=== PATIENT | male | born 1960 | race Caucasian/White ===

== ENCOUNTER 2022-06-29 21:41 | Emergency (ER) | payer BC ==
[2022-06-29 21:47] VITALS: BP 161/93; PULSE 85; RESP 16; TEMP 98.3
--- NOTE | 2022-06-29 22:07 | ED ---
General Adult HPI - General Chief complaint: Extremity Injury, Upper Stated complaint: left arm fracture Time Seen by Provider: 06/29/22 21:48 Source: patient, RN notes reviewed Mode of arrival: ambulatory Limitations: no limitations - History of Present Illness Initial comments: This is a pleasant 62-year-old male who presents to emergency department c omplaining of pain to his left shoulder and left trapezius area which started just before Thanksgiving. Patient states any movement exacerbates the pain. Patient states that his arm is not supported he is getting a lot of pain. Denies any distal paresthesias. States he feels well otherwise. Patient denying any trauma. Pain radiates from the left trapezius into the left upper arm area. No break in skin integrity. No rash or lesion. Patient states he has no other health issues. Patient ended up going to a chiropractor and had x- rays of his neck. Patient apparently went back for follow-up visit and saw a physician medical receptionist assistant at that facility who ordered an MRI. Patient had outpatient MRI was told to come here due to a fracture. No headache, no fever or chills, no changes in vision or hearing, no sore throat or difficulty with speech, no neck pain, no chest pain or shortness of breath, no abdominal pain, no nausea or vomiting, no changes in urination or bowel movements, no numbness or tingling, no extremity pain, no skin rashes or lesions. Past medical, surgical, social, and family history reviewed. - Related Data Allergies Allergy/AdvReac Type Severity Reaction Status Date / Time Penicillins Allergy Unknown Verified 06/29/22 21:43 Review of Systems ROS Statement: Those systems with pertinent positive or pertinent negative responses have been documented in the HPI. ROS Other: All systems not noted in ROS Statement are negative. Past Medical History Past Medical History: No Reported History History of Any Multi-Drug Resistant Organisms: None Reported Past Surgical History: Appendectomy, Orthopedic Surgery Past Psychological History: No Psychological Hx Reported Smoking Status: Never smoker Past Alcohol Use History: None Reported Past Drug Use History: None Reported General Exam - General Exam Comments Initial Comments: Blood pressure elevated, patient looks well otherwise. Remainder of vital signs are normal. Limitations: no limitations General appearance: alert, in no apparent distress Head exam: Present: atraumatic, normocephalic, normal inspection Eye exam: Present: normal appearance, PERRL, EOMI. Absent: scleral icterus, conjunctival injection, periorbital swelling ENT exam: Present: normal exam, mucous membranes moist Neck exam: Present: normal inspection. Absent: tenderness, meningismus, lymphadenopathy Respiratory exam: Present: normal lung sounds bilaterally. Absent: respiratory distress, wheezes, rales, rhonchi, stridor, chest wall tenderness, accessory muscle use, decreased breath sounds, prolonged expiratory Cardiovascular Exam: Present: regular rate, normal rhythm, normal heart sounds. Absent: systolic murmur, diastolic murmur, rubs, gallop, clicks GI/Abdominal exam: Present: soft, normal bowel sounds. Absent: distended, tend erness, guarding, rebound, rigid Extremities exam: Present: tenderness (Tender to the trapezius and proximal humerus area.), normal capillary refill, other (No other definitive abnormality with regards to musculoskeletal system.). Absent: full ROM (Range of motion limited with regards to the shoulder. Patient does have some atrophy of the supraspinatus and trapezius area. Possibly the deltoid as well. No erythema. No break in skin integrity), pedal edema, joint swelling, calf tenderness Back exam: Present: normal inspection Neurological exam: Present: alert, oriented X3, CN II-XII intact Psychiatric exam: Present: normal affect, normal mood Skin exam: Present: warm, dry, intact, normal color. Absent: rash Course Vital Signs 06/29/22 21:44 Temperature 98.3 F Pulse Rate 85 Respiratory 16 Rate Blood Pressure 161/93 O2 Sat by Pulse 98 Oximetry Medical Decision Making - Medical Decision Making Was pt. sent in by a medical professional or institution? @ Patient was sent by [facility] [employer] after having an outpatient MRI of his left shoulder which was abnormal. Apparently the MRI was ordered by the p cr medical receptionist assistant who works at [employer] with the chiropractor, Dr. Marilyn Shah. Did you speak to anyone other than the patient for history? @ [EMS, parent, family, police, friend?] Did you review nursing and triage notes? @ Yes Were old charts reviewed? @ Reviewed MRI report from outside diagnostic center.Impression large bone lesion within the proximal humeral diaphysis suggestive of bony metastases with 2 additional smaller lesions present within the superior glenoid coracoid process there is loss of the normal cortex involving the posterior medial aspect of the humeral lesion with local extension of the bone lesion into the soft tissues as well as a corresponding pathologic fracture through the proximal humeral diaphysis at this level with medial angulation of the distal fracture fragment. No additional evidence of fracture. Edema within the deltoid muscle may represent reactive bone marrow edema related to humeral fracture. Deltoid muscle strength cannot be excluded. Superior glenoid labral tear. No additional glenoid labral abnormalities. Mild supraspinatus and infraspinatus tendinosis, no evidence of rotator cuff tear, mild subacromial and subdeltoid bursitis. Differential Diagnosis? @ [chest pain, altered mental status abdominal pain women, abdominal pain men, vaginal bleeding, weakness, fever, dyspnea, syncope, headache, dizziness, GI bleed, back pain, seizure] EKG interpreted by me (3pts min.)? @ [none] X-rays interpreted by me (1pt min.)? @ Plain film x-rays of the cervical spine, chest, lumbar spine, left shoulder, humerus interpreted by me reveal evidence of a proximal humerus fracture and bone lesion. Radiologist interpretation is delayed CT interpreted by me (1pt min.)? @ [none] U/S interpreted by me (1pt. min.)? @ [none] What testing was considered but not performed? (CT, X-rays, U/S, labs)? Why? @ [CT, X-rays, U/S, labs? Why?] What meds were considered but not given? Why? @ [none] Did you discuss the management of the patient with other professionals? @ Case discussed in detail with the on-call orthopedic physician, Dr. Diamond who suggested the patient would need to see an orthopedic oncologist as well as an oncologist. She suggested the patient go to the [facility]. Did you reconcile home meds? @ [none] Was smoking cessation discussed for >3mins.? @ [none] Was critical care preformed (if so, how long)? @ [none] Were there social determinants of health that impacted care today? How? (Homelessness, low income, unemployed, alcoholism, drug addiction, transportation, low edu. Level, literacy, decrease access to med. care, care home, rehab)? @ Patient has no primary care physician. I did discuss this in detail with the patient. Patient states he can obtain a primary care doctor. In fact he states he's going to go directly to the [facility]. Was there de-escalation of care discussed even if they declined? (Discuss DNR or withdrawal of care, Hospice)? @ [Discuss DNR or withdrawal of care, Hospice?] What co-morbidities impacted this encounter? (DM, HTN, Smoking, COPD, CAD, Canc er, CVA, Hep., AIDS, mental health diagnosis, sleep apnea, morbid obesity)? @ [DM, HTN, Smoking, COPD, CAD, Cancer, CVA, Hep., AIDS, mental health diagnosis, sleep apnea, morbid obesity?] Was patient admitted / discharged? @ Patient was discharged with a sling, conservative pain management, stable condition, patient will follow up at the [facility] as discussed. Patient will need to see orthopedic oncology as well as an oncologist regarding the findings. Patient's laboratory investigations were essentially normal. Radiologist report was delayed. I did review the patient's outpatient MRI. Patient was told to return to the ER for any signs or symptoms worsen. Told to return immediately if any other problems arise. All questions answered. Treatment plan discussed. Patient in agreement Every effort has been made to ensure accuracy of this dictation. However, due to the limitations of electronic medical records and dictation devices, errors in charting still occur. Undiagnosed new problem with uncertain prognosis? @ This is a stable lesion of undetermined etiology. Drug Therapy requiring intensive monitoring for toxicity (Heparin, Nitro, Insul in, Cardizem)? @ [none] Were any procedures done? @ [none] Diagnosis/symptom? @ Proximal humerus fracture, closed, left, associated bone lesion Acute, or Chronic, or Acute on Chronic? @ Acute Uncomplicated (without systemic symptoms) or Complicated (systemic symptoms)? @ Complicated Side effects of treatment? @ [none] Exacerbation, Progression, or Severe Exacerbation] @ [no] Poses a threat to life or bodily function? @ [no] - Lab Data Result diagrams: 06/29/22 22:03 06/29/22 22:03 Lab Results 06/29/22 06/29/22 06/29/22 Range/Units 22:03 22:03 22:03 WBC 7.7 (3.8-10.6) k/uL RBC 4.62 (4.30-5.90) m/uL Hgb 13.7 (13.0-17.5) gm/dL Hct 38.6 L (39.0-53.0) % MCV 83.4 (80.0-100.0) fL MCH 29.6 (25.0-35.0) pg MCHC 35.4 (31.0-37.0) g/dL RDW 13.9 (11.5-15.5) % Plt Count 217 (150-450) k/uL MPV 8.4 Neutrophils % 59 % Lymphocytes % 32 % Monocytes % 5 % Eosinophils % 2 % Basophils % 0 % Neutrophils # 4.5 (1.3-7.7) k/uL Lymphocytes # 2.4 (1.0-4.8) k/uL Monocytes # 0.4 (0-1.0) k/uL Eosinophils # 0.1 (0-0.7) k/uL Basophils # 0.0 (0-0.2) k/uL PT 10.2 (9.0-12.0) sec INR 1.0 (<1.2) APTT 23.1 (22.0-30.0) sec Sodium 139 (137-145) mmol/L Potassium 4.3 (3.5-5.1) mmol/L Chloride 105 (98-107) mmol/L Carbon Dioxide 26 (22-30) mmol/L Anion Gap 8 mmol/L BUN 13 (9-20) mg/dL Creatinine 0.68 (0.66-1.25) mg/dL Est GFR (CKD-EPI)AfAm >90 (>60 ml/min/1.73 sqM) Est GFR (CKD-EPI)NonAf >90 (>60 ml/min/1.73 sqM) Glucose 97 (74-99) mg/dL Calcium 9.3 (8.4-10.2) mg/dL Total Bilirubin 0.7 (0.2-1.3) mg/dL AST 24 (17-59) U/L ALT 25 (4-49) U/L Alkaline Phosphatase 96 (38-126) U/L Total Protein 8.9 H (6.3-8.2) g/dL Albumin 4.2 (3.5-5.0) g/dL Disposition Clinical Impression: Closed fracture of proximal end of left humerus, Humerus lesion, left Narrative: Possible metastatic lesion to the proximal left humerus. Disposition: HOME SELF-CARE Condition: Stable Instructions (If sedation given, give patient instructions): Arm Fracture in Adults (ED), How to Use a Sling (ED), Osteolysis (ED) Additional Instructions: Follow-up with the [facility] as discussed. You need to see an orthopedic oncologist as well as an oncologist. You should also obtain a primary care physician. You can also follow-up with the orthopedic physician here in town for further guidance. Follow-up with your regular physician as directed. Return to the ER immediately if any symptoms worsen, new symptoms arise, or any other problems develop. Is patient prescribed a controlled substance at d/c from ED?: No Referrals: Luh Diamond DO [Doctor of Osteopathic Medicine] - 1-2 days Time of Disposition: 23:19
[2022-06-29 22:32] LABS: Basophils % (A) 0 %; Eosinophils # (A) 0.1 k/uL (0-0.7); Eosinophils % (A) 2 %; HCT 38.6 % (39.0-53.0); HGB 13.7 gm/dL (13.0-17.5); Lymphocytes # (A) 2.4 k/uL (1.0-4.8); Lymphocytes % (A) 32 %; MCH 29.6 pg (25.0-35.0); MCHC 35.4 g/dL (31.0-37.0); MCV 83.4 fL (80.0-100.0); Mean Platelet Volume 8.4; Monocytes # (A) 0.4 k/uL (0-1.0); Monocytes % (A) 5 %; Neutrophils # (A) 4.5 k/uL (1.3-7.7); Neutrophils % (A) 59 %; Platelet Count 217 k/uL (150-450); RBC 4.62 m/uL (4.30-5.90); RDW 13.9 % (11.5-15.5); WBC 7.7 k/uL (3.8-10.6)
[2022-06-29 22:47] LABS: ALT 25 U/L (4-49); AST 24 U/L (17-59); African American GFR (CKD) >90 (>60 ml/min/1.73 sqM); Albumin 4.2 g/dL (3.5-5.0); Alkaline Phosphatase 96 U/L (38-126); Anion Gap 8 mmol/L; Blood Urea Nitrogen 13 mg/dL (9-20); Calcium 9.3 mg/dL (8.4-10.2); Carbon Dioxide 26 mmol/L (22-30); Chloride 105 mmol/L (98-107); Glucose 97 mg/dL (74-99); Non-African American GFR(CKD) >90 (>60 ml/min/1.73 sqM); Potassium 4.3 mmol/L (3.5-5.1); Sodium 139 mmol/L (137-145); Total Bilirubin 0.7 mg/dL (0.2-1.3); Total Protein 8.9 g/dL (6.3-8.2)
--- NOTE | 2022-06-29 22:50 | XR ---
EXAMINATION TYPE: XR chest 2V DATE OF EXAM: 06/29/2022 COMPARISON: NONE HISTORY: Shoulder fracture TECHNIQUE: FINDINGS: Heart and mediastinum are normal. Lungs are clear. Diaphragm is normal. Bony thorax is inta ct. IMPRESSION: No cardiopulmonary disease.
[2022-06-29 22:51] LABS: Partial Thromboplastin Time 23.1 sec (22.0-30.0); Prothrombin Time 10.2 sec (9.0-12.0)
--- NOTE | 2022-06-29 22:51 | XR ---
EXAMINATION TYPE: XR cervical spine limited DATE OF EXAM: 06/29/2022 COMPARISON: NONE HISTORY: Shoulder pain Neck pain TECHNIQUE: 4 views FINDINGS: Cervical vertebra have normal alignment. Posterior elements are intact. Compression fractur e. There is no significant disc space narrowing. Prevertebral soft tissues are intact. Atlantoaxial f acet joint is not displaced. IMPRESSION: Negative cervical spine exam. No fracture.
--- NOTE | 2022-06-29 23:03 | XR ---
EXAMINATION TYPE: XR lumbar spine 2 or 3V DATE OF EXAM: 06/29/2022 COMPARISON: NONE HISTORY: Back pain TECHNIQUE: 3 views FINDINGS: The lumbar vertebrae are normal alignment. Posterior element are intact. No compression fra cture. Sacroiliac joints are intact. IMPRESSION: Negative lumbar spine exam. No fracture.
--- NOTE | 2022-06-29 23:05 | XR ---
EXAMINATION TYPE: XR humerus LT DATE OF EXAM: 06/29/2022 COMPARISON: NONE HISTORY: Pain TECHNIQUE: 3 views FINDINGS: There is transverse fracture proximal shaft of the humerus. No significant displacement. Th ere is osteolytic area measuring 4 cm at the fracture site. There is extensive cortical destruction. The elbow joint is intact. IMPRESSION: Pathologic fracture with large osteolytic lesion in the proximal humerus. This could be m yeloma or metastatic disease.
--- NOTE | 2022-06-29 23:07 | XR ---
EXAMINATION TYPE: XR shoulder complete LT DATE OF EXAM: 06/29/2022 COMPARISON: NONE HISTORY: Pain TECHNIQUE: 3 view FINDINGS: There is a 4 cm osteolytic lesion in the proximal shaft of the humerus with transverse frac ture. The glenohumeral joint is intact. Scapula is intact. AC joint is intact. IMPRESSION: Pathologic fracture of the proximal shaft of the left humerus.
== END 2022-06-29 23:55 | disposition home or self-care (01) ==
LOC: EC 21:41
DX: S42.202A Unspecified fracture of upper end of left humerus, initial encounter for closed fracture (principal); Z88.0 Allergy status to penicillin; X50.9XXA Other and unspecified overexertion or strenuous movements or postures, initial encounter
CPT/HCPCS: 36415; 71046; 72040; 72100; 80053; 85025; 85610; 85730; 99283

== ENCOUNTER 2023-07-11 09:34 | Day surgery (SDC) | payer BC ==
[2023-07-05 11:09] VITALS: BMI 36.3
[~2023-07-11 09:34] MED LIST: LACTATED RINGERS 1,000 ML IV SCH
[2023-07-11] MEDS ORDERED: LIDOCAINE 1% (10MG/ML) FOR IV START INTRADERMA ONE (10:24)
[2023-07-11 10:39] VITALS: TEMP 97
[2023-07-11] MEDS ORDERED: PROPOFOL 10 MG/ML 20 ML VIAL IV ONE (10:41)
--- NOTE | 2023-07-11 10:49 | P.GSHP ---
History of Present Illness H&P Date: 07/11/23 Chief Complaint: Screening colonoscopy This a 63-year-old male who is undergoing treatment of multiple myeloma. Patient presents today for screening colonoscopy. Past Medical History Past Medical History: Cancer Additional Past Medical History / Comment(s): multiple myeloma, dental disease History of Any Multi-Drug Resistant Organisms: None Reported Past Surgical History: Appendectomy, Orthopedic Surgery Additional Past Surgical History / Comment(s): bilateral knee surgery torn meniscus, fractured humerus left, wears brace Past Anesthesia/Blood Transfusion Reactions: No Reported Reaction Additional Past Anesthesia/Blood Transfusion Reaction / Comment(s): no blood transfusion Smoking Status: Never smoker - Past Family History Mother Family Medical History: Cancer Additional Family Medical History / Comment(s): cervical Father Additional Family Medical History / Comment(s): heart failure Brother(s) Additional Family Medical History / Comment(s): cardiac Medications and Allergies Home Medications Medication Instructions Recorded Confirmed Type Acyclovir [Zovirax] 400 mg PO BID 07/05/23 07/11/23 History Ascorbic Acid [Vitamin C] 1,000 mg PO BID 07/05/23 07/11/23 History Aspirin 81 mg PO DAILY 07/05/23 07/11/23 History Bortezomib 2 mg IJ WEEKLY 07/05/23 07/11/23 History Calcium Carbonate/Vitamin D3 1 each PO BID 07/05/23 07/11/23 History [Calcium 500 mg-Vit D3 5 mcg (200 Unit)] Cyanocobalamin (Vitamin B-12) 500 mcg PO DAILY 07/05/23 07/11/23 History [Vitamin B-12] Daratumumab [Darzalex] 1,800 mg IV Q30D 07/05/23 07/11/23 History Docusate [Colace] 50 mg PO Q4-6H PRN 07/05/23 07/11/23 History Lenalidomide [Revlimid] 25 mg PO DAILY 07/05/23 07/11/23 History Magnesium 400 mg PO DAILY 07/05/23 07/11/23 History Multivitamin [Multivitamins Adult 1 each PO DAILY 07/05/23 07/11/23 History Gummies] Omeprazole [PriLOSEC] 20 mg PO DAILY 07/05/23 07/11/23 History Ondansetron [Zofran] 4 mg PO Q6HR PRN 07/05/23 07/11/23 History dexAMETHasone [Decadron] 40 mg PO WEEKLY 07/05/23 07/11/23 History Allergies Allergy/AdvReac Type Severity Reaction Status Date / Time Penicillins Allergy Unknown Verified 07/11/23 10:15 Surgical - Exam Vital Signs Temp Pulse Resp BP Pulse Ox 97 F L 89 18 131/63 95 07/11/23 10:22 07/11/23 10:22 07/11/23 10:22 07/11/23 10:22 07/11/23 10:22 - General well developed, well nourished, no distress - Eyes PERRL - ENT normal pinna, normal nares - Neck no masses - Respiratory normal expansion - Cardiovascular Rhythm: regular - Abdomen Abdomen: soft, non tender Assessment and Plan Assessment: We'll perform screening colonoscopy.
--- NOTE | 2023-07-11 11:06 | P.OP ---
Date of Procedure: 07/11/23 Preoperative Diagnosis: Colon lesion Postoperative Diagnosis: Colon mass at 38 cm biopsy pending Procedure(s) Performed: colonoscopy Anesthesia: MAC Surgeon: Shaun Gardner Pathology: other (colon biopsy) Condition: stable Disposition: PACU Description of Procedure: The patient's placed on the endoscopy table in the lateral position. He received IV sedation. Digital rectal exam was performed. This revealed no abnormalities. The flexible colonoscope was then placed patient anus and passed throughout the entire colon. The ileocecal valve was visualized. The cecum, ascending and transverse colon appeared normal. In the descending colon at 38 cm maryam there appeared to be a suspicious tumor. The lesion was friable was biopsied. The lesion appeared to be a colon cancer. Scope was withdrawn remain in the sigmoid colon and rectum appeared normal. Scope withdrawn for patient.
[2023-07-11 11:50] VITALS: BP 134/83; PULSE 73; RESP 16
== END 2023-07-11 11:40 | disposition home or self-care (01) ==
LOC: ORWHC2ENDO 09:34
PROVIDERS: ATTEND Surgery
DX: C18.7 Malignant neoplasm of sigmoid colon (principal); K63.9 Disease of intestine, unspecified; K21.9 Gastro-esophageal reflux disease without esophagitis; Z90.49 Acquired absence of other specified parts of digestive tract; Z98.890 Other specified postprocedural states; Z82.49 Family history of ischemic heart disease and other diseases of the circulatory system; Z79.624 Long term (current) use of inhibitors of nucleotide synthesis; Z79.82 Long term (current) use of aspirin; Z79.899 Other long term (current) drug therapy; Z88.0 Allergy status to penicillin; Z85.79 Personal history of other malignant neoplasms of lymphoid, hematopoietic and related tissues
CPT/HCPCS: 88305; 88342; 88341; 45380; 45381; J2704

== ENCOUNTER → 2023-07-18 | Outpatient (CLI) | payer BC ==
[2023-07-19 02:11] LABS: Basophils # (A) 0.04 X 10*3/uL (0.00-0.10); Basophils % (A) 0.7 %; Eosinophils # (A) 0.15 X 10*3/uL (0.04-0.35); Eosinophils % (A) 2.7 %; HCT 39.5 % (39.6-50.0); HGB 12.5 g/dL (13.0-17.0); Lymphocytes # (A) 1.41 X 10*3/uL (0.90-5.00); Lymphocytes % (A) 25.6 %; MCH 26.9 pg (27.0-32.0); MCHC 31.6 g/dL (32.0-37.0); MCV 84.9 FL (80.0-97.0); Mean Platelet Volume 10.8 FL (9.5-12.2); Monocytes # (A) 0.49 X 10*3/uL (0.20-1.00); Monocytes % (A) 8.9 %; NRBC Per 100 WBC 0 X 10*3/uL (0.00-0.01); Neutrophils % (A) 61.9 %; Platelet Count 292 X 10*3/uL (140-440); RBC 4.65 X 10*6/uL (4.40-5.60); RDW 14.2 % (11.5-14.5)
[2023-07-19 02:28] LABS: Anion Gap 8.4 mmol/L (4.00-12.00); Carbon Dioxide 28.6 mmol/L (21.6-31.8); Potassium 4.8 mmol/L (3.5-5.5)
== END | disposition home or self-care (01) ==
LOC: LABPAT 15:45
PROVIDERS: ATTEND Surgery
DX: Z01.812 Encounter for preprocedural laboratory examination (principal); C18.9 Malignant neoplasm of colon, unspecified
CPT/HCPCS: 36415; 80051; 85025; 86850; 86870; 86880; 86900; 86901

== ENCOUNTER → 2023-07-23 | Outpatient (CLI) | payer BC | END | disposition home or self-care (01) | LOC: LABPAT 16:10 | PROVIDERS: ATTEND Surgery | DX: Z01.812 Encounter for preprocedural laboratory examination (principal); R94.31 Abnormal electrocardiogram [ECG] [EKG] | CPT/HCPCS: 86850; 86870; 86880; 86900; 86901; 93005 ==

== ENCOUNTER 2023-07-26 05:41 | Inpatient (IN) | payer BC ==
[2023-07-19 10:15] VITALS: BMI 36.3
[~2023-07-26 05:41] MED LIST changes: +ACETAMINOPHEN TAB 500 MG TAB PO PRN; +HEPARIN SODIUM,PORCINE 5,000 UNIT/ML 1 ML VIAL SQ PRN; -LACTATED RINGERS 1,000 ML IV SCH; +metroNIDAZOLE-NS PMX 500 MG in SALINE 1 100ML.BAG IVPB PRN
[2023-07-26] MEDS ORDERED: droPERidol 5 MG/2 ML VIAL IVP ONE (05:50)
[2023-07-26] MEDS ORDERED: ONDANSETRON 4 MG/2 ML VIAL IVP ONE (05:50)
[2023-07-26] MEDS ORDERED: DEXAMETHASONE SOD PHOSPHATE 4 MG/ML 1 ML VIAL IV ONE (05:50)
[2023-07-26] MEDS ORDERED: LIDOCAINE 1% (10MG/ML) FOR IV START INTRADERMA PRN (05:50)
[2023-07-26] MEDS: LACTATED RINGERS 1,000 ML IV SCH (06:15)
[2023-07-26] MEDS ORDERED: MIDAZOLAM 2 MG/2 ML VIAL IVP ONE (06:49)
[2023-07-26] MEDS ORDERED: fentaNYL (PF) 50 MCG/ML 2 ML AMP IVP ONE (06:49)
[2023-07-26] MEDS ORDERED: SUCCINYLCHOLINE CHLORIDE 200 MG/10 ML VIAL IV ONE (07:14)
[2023-07-26] MEDS ORDERED: ROCURONIUM 10 MG/ML (5 ML VIAL) IV ONE (07:14)
[2023-07-26] MEDS ORDERED: SODIUM CHLORIDE 0.9% (PF) 10 ML VIAL ONE (07:14)
[2023-07-26] MEDS ORDERED: ROPIVACAINE 5 MG/ML 30 ML VIAL ONE (07:14)
[2023-07-26] MEDS ORDERED: NEOSTIGMINE 1 MG/ML 10 ML VIAL ONE (07:14)
[2023-07-26] MEDS ORDERED: GLYCOPYRROLATE 0.2 MG/ML 2 ML VIAL ONE (07:14)
[2023-07-26] MEDS ORDERED: fentaNYL (PF) 50 MCG/ML 2 ML AMP ONE (07:14)
[2023-07-26] MEDS ORDERED: PROPOFOL 10 MG/ML 20 ML VIAL IV ONE (07:14)
[2023-07-26] MEDS ORDERED: PHENYLEPHRINE 10 MG/ML VIAL ONE (07:14)
--- NOTE | 2023-07-26 08:44 | P.GSHP ---
History of Present Illness H&P Date: 07/26/23 Chief Complaint: Left colon cancer This is a 63-year-old male who was recently diagnosed with left colon cancer. Patient presents today for left colectomy. Patient is aware the risks of surgery including possible colonoscopy, bleeding and infection. Past Medical History Past Medical History: Cancer Additional Past Medical History / Comment(s): multiple myeloma, dental disease, colon cancer History of Any Multi-Drug Resistant Organisms: None Reported Past Surgical History: Appendectomy, Orthopedic Surgery Additional Past Surgical History / Comment(s): bilateral knee surgery torn meniscus, fractured humerus left- wears brace Past Anesthesia/Blood Transfusion Reactions: No Reported Reaction Additional Past Anesthesia/Blood Transfusion Reaction / Comment(s): no blood transfusion Smoking Status: Never smoker - Past Family History Mother Family Medical History: Cancer Additional Family Medical History / Comment(s): cervical Father Additional Family Medical History / Comment(s): heart failure Brother(s) Additional Family Medical History / Comment(s): cardiac Medications and Allergies Home Medications Medication Instructions Recorded Confirmed Type Acyclovir [Zovirax] 400 mg PO BID 07/05/23 07/19/23 History Ascorbic Acid [Vitamin C] 1,000 mg PO BID 07/05/23 07/19/23 History Aspirin 81 mg PO DAILY 07/05/23 07/19/23 History Bortezomib 2 mg IJ WEEKLY 07/05/23 07/19/23 History Calcium Carbonate/Vitamin D3 1 each PO BID 07/05/23 07/19/23 History [Calcium 500 mg-Vit D3 5 mcg (200 Unit)] Cyanocobalamin (Vitamin B-12) 500 mcg PO DAILY 07/05/23 07/19/23 History [Vitamin B-12] Daratumumab [Darzalex] 1,800 mg IV Q30D 07/05/23 07/19/23 History Docusate [Colace] 50 mg PO Q4-6H PRN 07/05/23 07/19/23 History Lenalidomide [Revlimid] 25 mg PO DAILY 07/05/23 07/19/23 History Magnesium 400 mg PO DAILY 07/05/23 07/19/23 History Multivitamin [Multivitamins Adult 1 each PO DAILY 07/05/23 07/19/23 History Gummies] Omeprazole [PriLOSEC] 20 mg PO DAILY 07/05/23 07/19/23 History Ondansetron [Zofran] 4 mg PO Q6HR PRN 07/05/23 07/19/23 History dexAMETHasone [Decadron] 40 mg PO WEEKLY 07/05/23 07/19/23 History Allergies Allergy/AdvReac Type Severity Reaction Status Date / Time Penicillins Allergy Unknown Verified 07/11/23 10:15 Surgical - Exam Vital Signs Temp Pulse Resp BP Pulse Ox 97.4 F L 95 16 121/63 97 07/26/23 06:09 07/26/23 06:09 07/26/23 06:09 07/26/23 06:09 07/26/23 06:09 - General well developed, well nourished, no distress - Eyes PERRL - ENT normal pinna - Neck no masses - Respiratory normal expansion - Cardiovascular Rhythm: regular - Abdomen Abdomen: soft, non tender Assessment and Plan Assessment: Left colon cancer. We'll perform left colectomy.
--- NOTE | 2023-07-26 08:46 | P.OP ---
Date of Procedure: 07/26/23 Preoperative Diagnosis: Left colon cancer Postoperative Diagnosis: Left colon cancer Procedure(s) Performed: Left colectomy Anesthesia: MARY Surgeon: Shaun Gardner Estimated Blood Loss (ml): 10 Pathology: other (Left colon) Condition: stable Disposition: PACU Description of Procedure: Patient's placed in the operative table in supine position. He received general endotracheal anesthesia. His abdomen was prepped and draped usual fashion. A low midline incision was made. The Bookwalter retractors placed in the wound after the abdominal wall was divided with electrocautery. The colon had been tattooed distally to the lesion. At the level of the distal left colon at the left colon sigmoid colon junction the tattoo was seen. This point the; was mobilized by dividing lateral peritoneal attachments. In the white line of Toldt was divided in the left colon was mobilized. The colon was then transected distally approximately the NILDA stapler. And using the Enseal device the mesentery the bowel was divided. The specimen was opened lesion was seen. The suture was used to tag the proximal portion of colon. Next using the NILDA and TA staplers a [id number] functional end-to-end stapled vessels was created. A 3-0 GI silk sutures a crotch stitch. The abdomen was areas no bleeding seen. The fascia is closed loop #1 PDS suture. Skin was closed luana. ThePrevena once this was placed on top of the close skin. Patient top she will. He was sent to recovery room stable condition.
[2023-07-26] MEDS ORDERED: ONDANSETRON 4 MG/2 ML VIAL IVP PRN (08:48)
[2023-07-26] MEDS ORDERED: METOCLOPRAMIDE 5 MG/ML 2 ML VIAL IVP PRN (08:48)
[2023-07-26] MEDS ORDERED: BENZOCAINE/MENTHOL LOZENG 1 EACH LOZENGE MUCOUS MEM PRN (08:48)
[2023-07-26] MEDS: HYDROmorphone 0.5 MG/0.5 ML SYRINGE IVP PRN ×4 (09:01→09:53)
[2023-07-26] MEDS ORDERED: LACTATED RINGERS 1,000 ML IV ONE (09:38)
[2023-07-26] MEDS: KETOROLAC 15 MG/ML 1 ML VIAL IVP PRN (13:34)
[2023-07-26] MEDS: D5-0.45% NACL WITH KCL 20MEQ/L 1,000 ML IV SCH ×2 (13:36→20:35)
--- NOTE | 2023-07-26 13:36 | P.ANPRN ---
Procedure Note - Anesthesia - Nerve Block Performed Bilateral Rectus Abdominis Single Time Out Performed: Yes ([id number]) Date of Procedure: 07/26/23 Procedure Start Time: 06:50 Procedure Stop Time: 06:56 Location of Patient: PreOp Indication: Acute Post-Operative Pain, Requested by Surgeon Specifically requested for management of pain by DrWalter: Shaun Gardner Sedation Type: Sedate with meaningful contact maintained Preparation: Sterile Prep Position: Supine Catheter: None Needle Types: Pajunk Needle Gauge: 21 Ultrasound used to visualize needle placement: Yes Ultrasound used to observe medication spread: Yes Injectate: 0.5% Ropivacaine (see comment for volume) (15cc +10cc nacl pf each side) Blood Aspirated: No Pain Paresthesia on Injection Noted: No Resistance on Injection: Normal Image Stored and Saved: Yes Events: Uneventful and Well Tolerated
--- NOTE | 2023-07-26 16:35 | P.CONS ---
History of Present Illness - Reason for Consult Consult date: 07/26/23 Medical management, status post left colectomy - History of Present Illness This is a pleasant 63-year-old male who was admitted under Gen. surgery services and underwent left colectomy for colon cancer. Patient reports he had an outpatient colonoscopy that was performed and a biopsy was obtained that was positive for cancer and patient was scheduled today for left colectomy. Patient follows with an outside physician as well as [facility] with history of multiple myeloma, significant dental disease and recently has had all of his teeth removed for dental implants. Patient denies smoking and denies any illicit drug use or alcohol. We are placed on consult for medical management postoperatively. Review Of Systems: Constitutional: No fever, no chills, no night sweats. No weight change. No weakness, fatigue or lethargy. No daytime sleepiness. EENT: No headache. No blurred vision or double vision, no loss of vision. No loss of Hearing, no ringing in the ears, no dizziness. No nasal drainage or congestion. No epistaxis. No sore throat. Lungs: No shortness of breath, cough, no sputum production. No wheezing. Cardiovascular: No chest pain, no lower extremity edema. No palpitations. No paroxysmal nocturnal dyspnea. No orthopnea. No lightheadedness or dizziness. No syncopal episodes. Abdominal: No abdominal pain. No nausea, vomiting. No diarrhea. No constipation. No bloody or tarry stools.. No loss of appetite. Genitourinary: No dysuria, increased frequency, urgency. No urinary retention. Musculoskeletal: No myalgias. No muscle weakness, no gait dysfunction, no freq uent falls. No back pain. No neck pain. Integumentary: No wounds, no lesions. No rash or pruritus. No unusual bruising. No change in hair or nails. Neurologic: No aphasia. No facial droop. No change in mentation. No head injury. No headache. No paralysis. No paresthesia. Psychiatric: No depression. No anxiety. No mood swings. Endocrine: No abnormal blood sugars. No weight change. No excessive sweating or thirst. No cold intolerance. PHYSICAL EXAMINATION: GENERAL: The patient is alert and oriented x4, Well developed, well nourished. Obese HEENT: Pupils are round and equally reacting to light. EOMI. no scleral icterus. No conjunctival pallor. Normocephalic, atraumatic. No pharyngeal erythema. No thyromegaly. CARDIOVASCULAR: S1 and S2 muffled PULMONARY: diminished breath sounds bilaterally with no wheezing or rhonchi noted. ABDOMEN: soft. Nontender on exam. obese. non-distended, normoactive bowel sounds. No palpable organomegaly. MUSCULOSKELETAL: No joint swelling or deformity. EXTREMITIES: No cyanosis, clubbing, or pedal edema. NEUROLOGICAL: Gross neurological examination did not reveal any focal deficits. Diffuse weakness SKIN: No rashes. Assessment: Left colon cancer, status post left colectomy postop day 0 History of positive biopsy for colon cancer on colonoscopy most recently History of multiple myeloma and follows with oncology at [facility] History of significant dental disease History of ADD/ADHD obesity with a BMI of 34.3 GI prophylaxis DVT prophylaxis Full code Plan: Recommend to continue with current medications and management per general surgery services Patient is currently nothing by mouth and will resume diet including clear liquids per surgery recommendations next line home medications reviewed and resumed as appropriate Encouraged incentive spirometer although patient reports he cannot use as he just had teeth removed this week on the uppers and unable to suck. Encouraged deep breathing frequent times at least 10 times every hour while awake Encouraged increased activity as tolerated Recommend basic labs in the a.m. We will continue to follow during hospitalization with general surgery services. Thank you kindly for this consultation. The impression and plan of care has been dictated by Janene Watson, nurse practitioner as directed. Dr. Irnee MD I have performed a history and examination and MDM of this patient, discussed the same with the dictator, and agree with the dictator's assessment and plan as written ,documented as a scribe. Based on total visit time, I have performed more than 50% of the visit. Any additional findings or plans will be noted. Past Medical History Past Medical History: Cancer Additional Past Medical History / Comment(s): multiple myeloma, dental disease, colon cancer History of Any Multi-Drug Resistant Organisms: None Reported Past Surgical History: Appendectomy, Orthopedic Surgery Additional Past Surgical History / Comment(s): bilateral knee surgery torn meniscus, fractured humerus left- wears brace Past Anesthesia/Blood Transfusion Reactions: No Reported Reaction Additional Past Anesthesia/Blood Transfusion Reaction / Comm: no blood transfusion Smoking Status: Never smoker - Past Family History Mother Family Medical History: Cancer Additional Family Medical History / Comment(s): cervical Father Additional Family Medical History / Comment(s): heart failure Brother(s) Additional Family Medical History / Comment(s): cardiac Medications and Allergies Home Medications Medication Instructions Recorded Confirmed Type Acyclovir [Zovirax] 400 mg PO BID 07/05/23 07/19/23 History Ascorbic Acid [Vitamin C] 1,000 mg PO BID 07/05/23 07/19/23 History Aspirin 81 mg PO DAILY 07/05/23 07/19/23 History Bortezomib 2 mg IJ WEEKLY 07/05/23 07/19/23 History Calcium Carbonate/Vitamin D3 1 each PO BID 07/05/23 07/19/23 History [Calcium 500 mg-Vit D3 5 mcg (200 Unit)] Cyanocobalamin (Vitamin B-12) 500 mcg PO DAILY 07/05/23 07/19/23 History [Vitamin B-12] Daratumumab [Darzalex] 1,800 mg IV Q30D 07/05/23 07/19/23 History Docusate [Colace] 50 mg PO Q4-6H PRN 07/05/23 07/19/23 History Lenalidomide [Revlimid] 25 mg PO DAILY 07/05/23 07/19/23 History Magnesium 400 mg PO DAILY 07/05/23 07/19/23 History Multivitamin [Multivitamins Adult 1 each PO DAILY 07/05/23 07/19/23 History Gummies] Omeprazole [PriLOSEC] 20 mg PO DAILY 07/05/23 07/19/23 History Ondansetron [Zofran] 4 mg PO Q6HR PRN 07/05/23 07/19/23 History dexAMETHasone [Decadron] 40 mg PO WEEKLY 07/05/23 07/19/23 History Allergies Allergy/AdvReac Type Severity Reaction Status Date / Time Penicillins Allergy Unknown Verified 07/11/23 10:15 Physical Exam Vitals: Vital Signs Temp Pulse Pulse Resp BP BP Pulse Ox 07/26/23 13:50 98.6 F 78 20 127/82 99 07/26/23 12:46 74 16 107/56 96 07/26/23 12:30 68 16 108/72 96 07/26/23 12:15 64 16 109/55 96 07/26/23 12:00 63 16 109/63 96 07/26/23 11:45 74 16 112/59 96 07/26/23 11:30 61 16 111/55 98 07/26/23 11:15 68 16 102/55 98 07/26/23 11:00 65 16 115/57 98 07/26/23 10:45 65 16 109/57 98 07/26/23 10:32 68 16 107/56 98 07/26/23 10:15 60 16 107/57 98 07/26/23 10:00 58 L 16 118/64 98 07/26/23 09:46 60 16 116/59 98 07/26/23 09:31 61 16 117/57 98 07/26/23 09:16 58 L 16 126/66 98 07/26/23 09:02 57 L 16 133/61 98 07/26/23 08:46 97.6 F 63 12 126/58 98 07/26/23 07:00 70 16 105/59 98 07/26/23 06:55 79 16 108/65 97 07/26/23 06:09 97.4 F L 95 16 121/63 97 Intake and Output 07/26/23 07/26/23 07/26/23 06:59 14:59 22:59 Intake Total 100 1000 Output Total 150 Balance 100 850 Intake: IV 100 1000 Output: Urine 100 Estimated Blood Loss 50 Other: Weight 87.8 kg
[2023-07-26] MEDS: HYDROmorphone 1 MG/ML 1 ML SYRINGE IVP PRN ×2 (17:49→21:20)
[2023-07-26] MEDS: ASCORBIC ACID 500 MG TAB PO SCH (20:33)
[2023-07-26] MEDS: ACYCLOVIR 200 MG CAP PO SCH (20:33)
[2023-07-26] MEDS: FAMOTIDINE 20 MG/2 ML VIAL IV SCH (20:34)
[2023-07-26] MEDS: CALCIUM CARB-VIT D 500 MG-5 MCG TAB PO SCH (20:34)
[2023-07-27] MEDS: KETOROLAC 15 MG/ML 1 ML VIAL IVP PRN ×3 (02:00→17:55)
[2023-07-27] MEDS: D5-0.45% NACL WITH KCL 20MEQ/L 1,000 ML IV SCH ×3 (04:38→21:25)
[2023-07-27] MEDS: LACTATED RINGERS 1,000 ML IV SCH (04:40)
[2023-07-27] MEDS: HYDROmorphone 1 MG/ML 1 ML SYRINGE IVP PRN ×3 (06:35→23:59)
[2023-07-27] MEDS: PANTOPRAZOLE 40 MG TABLET PO SCH (09:06)
[2023-07-27] MEDS: FAMOTIDINE 20 MG/2 ML VIAL IV SCH ×2 (09:06→21:26)
[2023-07-27] MEDS: CYANOCOBALAMIN 500 MCG TAB PO SCH (09:07)
[2023-07-27] MEDS: MAGNESIUM OXIDE 400 MG TAB PO SCH (09:07)
[2023-07-27] MEDS: ACYCLOVIR 200 MG CAP PO SCH ×2 (09:07→21:25)
[2023-07-27] MEDS: ALVIMOPAN 12 MG CAPSULE PO SCH ×2 (09:07→21:25)
[2023-07-27] MEDS: ASCORBIC ACID 500 MG TAB PO SCH ×2 (09:07→21:25)
[2023-07-27] MEDS: NON FORMULARY DRUG (Lenalidomide [Revlimid] 25 MG Capsule) PO SCH (09:07)
[2023-07-27] MEDS: MULTIVITAMINS, THERA 1 EACH TAB PO SCH (09:07)
[2023-07-27] MEDS: CALCIUM CARB-VIT D 500 MG-5 MCG TAB PO SCH ×2 (09:07→21:25)
[2023-07-27 12:41] LABS: BUN/Creat Ratio 9.57 Ratio (12.00-20.00); Blood Urea Nitrogen 6.7 mg/dL (9.0-27.0); Calcium 8.9 mg/dL (8.7-10.3); Chloride 105 mmol/L (96-109); Glucose 129 mg/dL (70-110); Potassium 4.6 mmol/L (3.5-5.5); Sodium 138 mmol/L (135-145)
[2023-07-27 13:03] LABS: Basophils # (A) 0.02 X 10*3/uL (0.00-0.10); Basophils % (A) 0.3 %; Eosinophils # (A) 0.07 X 10*3/uL (0.04-0.35); Eosinophils % (A) 0.9 %; HCT 31.8 % (39.6-50.0); HGB 9.9 g/dL (13.0-17.0); Lymphocytes # (A) 1.27 X 10*3/uL (0.90-5.00); Lymphocytes % (A) 17.2 %; MCH 26.8 pg (27.0-32.0); MCHC 31.1 g/dL (32.0-37.0); MCV 85.9 FL (80.0-97.0); Mean Platelet Volume 10.7 FL (9.5-12.2); Monocytes % (A) 10.8 %; NRBC Per 100 WBC 0 X 10*3/uL (0.00-0.01); Neutrophils # (A) 5.19 X 10*3/uL (1.80-7.70); Neutrophils % (A) 70.4 %; Platelet Count 173 X 10*3/uL (140-440); RDW 14.4 % (11.5-14.5); WBC 7.38 X 10*3/uL (4.50-10.00)
--- NOTE | 2023-07-27 13:40 | P.PN ---
Subjective Progress Note Date: 07/27/23 This is a pleasant 63-year-old male who was admitted under Gen. surgery services and underwent left colectomy for colon cancer. Patient reports he had an outpatient colonoscopy that was performed and a biopsy was obtained that was positive for cancer and patient was scheduled today for left colectomy. Patient follows with an outside physician as well as [facility] with history of multiple myeloma, significant dental disease and recently has had all of his teeth removed for dental implants. Patient denies smoking and denies any illicit drug use or alcohol. We are placed on consult for medical management postoperatively. 07/27. Patient seen and examined. Currently on clear liquid diet. Denies any nausea or vomiting. REVIEW OF SYSTEMS: CONSTITUTIONAL: No fever, no malaise,. CARDIOVASCULAR: No chest pain, no palpitations, no syncope. PULMONARY: No shortness of breath, no cough, GASTROINTESTINAL: No diarrhea, no nausea, no vomiting, no abdominal pain. NEUROLOGICAL: No headaches, no weakness, PHYSICAL EXAMINATION: GENERAL: The patient is alert and oriented x3, not in any acute distress. Well developed, well nourished. HEENT: Pupils are round and equally reacting to light. EOMI. No scleral icterus. No conjunctival pallor. Normocephalic, atraumatic. No pharyngeal erythema. No thyromegaly. CARDIOVASCULAR: S1 and S2 present. No murmurs, rubs, or gallops. PULMONARY: Chest is clear to auscultation, no wheezing or crackles. ABDOMEN: Laparotomy surgical incision seen, wound VAC in place MUSCULOSKELETAL: No joint swelling or deformity. EXTREMITIES: No cyanosis, clubbing, or pedal edema. NEUROLOGICAL: Gross neurological examination did not reveal any focal deficits. SKIN: No rashes. Assessment and plan Left colon cancer, status post left colectomy postop day 0 History of positive biopsy for colon cancer on colonoscopy most recently History of multiple myeloma and follows with oncology at of [facility] History of significant dental disease History of ADD/ADHD obesity with a BMI of 34.3 Monitor vital signs Monitor CBC Monitor CMP Continue antiemetics Continue IV fluids Continue pain management Continue diet per surgery Continue home meds Labs and medication were reviewed.. Continue same treatment. Continue with symptomatic treatment. Resume home medication. Monitor labs and vitals. DVT and GI prophylaxis. Further recommendations as per clinical course of the patient Dictation was produced using dragon dictation software. please excuse any grammatical, word or spelling errors. Objective - Vital Signs Vital signs: Vital Signs Temp 98.2 F 07/27/23 07:43 Pulse 52 L 07/27/23 07:43 Resp 16 07/27/23 07:43 BP 115/69 07/27/23 07:43 Pulse Ox 100 07/27/23 07:43 FiO2 Intake & Output 07/26/23 07/27/23 07/27/23 18:59 06:59 18:59 Intake Total 1500 Output Total 650 375 Balance 850 -375 Intake: IV 1000 Intake, IV Titration 500 Amount D5-0.45% NaCl with KCl 500 20Meq/l 1,000 ml @ 125 mls/hr IV .Q8H [facility] Rx#: [id number] Output: Urine 600 375 Uretheral (Crawley) 100 Estimated Blood Loss 50 Other: Voiding Method Indwelling Catheter Urinal - Labs CBC & Chem 7: 07/27/23 06:08 07/27/23 06:08
--- NOTE | 2023-07-27 15:48 | P.PN ---
Subjective Progress Note Date: 07/27/23 Principal diagnosis: s/p Lt colectomy for colon CA POD#1 This is a 63-year-old male who was recently diagnosed with left colon cancer. s/p left colectomy. POD#1 no issues overnight Past Medical History Past Medical History: Cancer Additional Past Medical History / Comment(s): multiple myeloma, dental disease, colon cancer History of Any Multi-Drug Resistant Organisms: None Reported Past Surgical History: Appendectomy, Orthopedic Surgery Additional Past Surgical History / Comment(s): bilateral knee surgery torn meniscus, fractured humerus left- wears brace Past Anesthesia/Blood Transfusion Reactions: No Reported Reaction Additional Past Anesthesia/Blood Transfusion Reaction / Comment(s): no blood transfusion Smoking Status: Never smoker Objective - Vital Signs Vital signs: Vital Signs Temp 98.6 F 07/27/23 14:30 Pulse 70 07/27/23 14:30 Resp 16 07/27/23 14:30 BP 123/70 07/27/23 14:30 Pulse Ox 95 07/27/23 14:30 FiO2 Intake & Output 07/26/23 07/27/23 07/27/23 18:59 06:59 18:59 Intake Total 1500 Output Total 650 375 Balance 850 -375 Intake: IV 1000 Intake, IV Titration 500 Amount D5-0.45% NaCl with KCl 500 20Meq/l 1,000 ml @ 125 mls/hr IV .Q8H [facility] Rx#: [id number] Output: Urine 600 375 Uretheral (Crawley) 100 Estimated Blood Loss 50 Other: Voiding Method Indwelling Catheter Urinal Toilet Urinal - Constitutional General appearance: Present: cooperative - EENT Eyes: Present: PERRLA - Neck Neck: Absent: lymphadenopathy, stridor - Respiratory Respiratory: bilateral: CTA - Cardiovascular Rhythm: regular Heart sounds: normal: S1, S2 - Gastrointestinal General gastrointestinal: Present: absent bowel sounds, soft - Labs CBC & Chem 7: 07/27/23 06:08 07/27/23 06:08 Labs: Abnormal Lab Results - Last 24 Hours (Table) 07/27/23 07/27/23 Range/Units 06:08 06:08 RBC 3.70 L (4.40-5.60) X 10*6/uL Hgb 9.9 L (13.0-17.0) g/dL Hct 31.8 L (39.6-50.0) % MCH 26.8 L (27.0-32.0) pg MCHC 31.1 L (32.0-37.0) g/dL BUN 6.7 L (9.0-27.0) mg/dL BUN/Creatinine Ratio 9.57 L (12.00-20.00) Ratio Glucose 129 H (70-110) mg/dL Assessment and Plan (1) S/P colectomy Current Visit: Yes Status: Acute Code(s): Z90.49 - ACQUIRED ABSENCE OF OTHER SPECIFIED PARTS OF DIGESTIVE TRACT SNOMED Code(s): 966944280 Plan: POD#1 Keep NPO IV hydration IS X10 per h Ambulate TID
[2023-07-27] MEDS: DOCUSATE 100 MG CAP PO PRN (17:55)
[2023-07-28] MEDS: LACTATED RINGERS 1,000 ML IV SCH (02:46)
[2023-07-28] MEDS: D5-0.45% NACL WITH KCL 20MEQ/L 1,000 ML IV SCH ×2 (02:46→14:00)
[2023-07-28] MEDS: KETOROLAC 15 MG/ML 1 ML VIAL IVP PRN (05:22)
[2023-07-28] MEDS: ALVIMOPAN 12 MG CAPSULE PO SCH ×2 (08:59→21:08)
[2023-07-28] MEDS: FAMOTIDINE 20 MG/2 ML VIAL IV SCH ×2 (08:59→21:08)
[2023-07-28] MEDS: ASCORBIC ACID 500 MG TAB PO SCH ×2 (08:59→21:08)
[2023-07-28] MEDS: ACYCLOVIR 200 MG CAP PO SCH ×2 (08:59→21:08)
[2023-07-28] MEDS: CALCIUM CARB-VIT D 500 MG-5 MCG TAB PO SCH ×2 (08:59→21:08)
[2023-07-28] MEDS: CYANOCOBALAMIN 500 MCG TAB PO SCH (08:59)
[2023-07-28] MEDS: MULTIVITAMINS, THERA 1 EACH TAB PO SCH (08:59)
[2023-07-28] MEDS: PANTOPRAZOLE 40 MG TABLET PO SCH (08:59)
[2023-07-28] MEDS: MAGNESIUM OXIDE 400 MG TAB PO SCH (08:59)
[2023-07-28] MEDS: DOCUSATE 100 MG CAP PO PRN (08:59)
[2023-07-28] MEDS: NON FORMULARY DRUG (Lenalidomide [Revlimid] 25 MG Capsule) PO SCH (09:00)
--- NOTE | 2023-07-28 10:57 | P.PN ---
Subjective Progress Note Date: 07/28/23 Patient feels better. He is postoperative day 2 from left colectomy. He denies a significant bowel function. On exam vital signs appear stable. Abdomen soft incision is clean dry intact Patient will receive supportive care. Objective - Vital Signs Vital signs: Vital Signs Temp 99.0 F 07/28/23 07:35 Pulse 76 07/28/23 07:35 Resp 18 07/28/23 07:35 BP 123/62 07/28/23 07:35 Pulse Ox 96 07/28/23 07:35 FiO2 Intake & Output 07/27/23 07/28/23 07/28/23 18:59 06:59 18:59 Intake Total 1500 Output Total 1501 Balance 1500 -1501 Intake: Intake, IV Titration 1500 Amount D5-0.45% NaCl with KCl 1500 20Meq/l 1,000 ml @ 125 mls/hr IV .Q8H [facility] Rx#: [id number] Output: Urine 1500 Stool 1 Other: Voiding Method Toilet Toilet Urinal Urinal # Voids 4 3 2 - Labs CBC & Chem 7: 07/27/23 06:08 07/27/23 06:08 Labs: Abnormal Lab Results - Last 24 Hours (Table) 07/27/23 07/27/23 Range/Units 06:08 06:08 RBC 3.70 L (4.40-5.60) X 10*6/uL Hgb 9.9 L (13.0-17.0) g/dL Hct 31.8 L (39.6-50.0) % MCH 26.8 L (27.0-32.0) pg MCHC 31.1 L (32.0-37.0) g/dL BUN 6.7 L (9.0-27.0) mg/dL BUN/Creatinine Ratio 9.57 L (12.00-20.00) Ratio Glucose 129 H (70-110) mg/dL
--- NOTE | 2023-07-28 13:01 | P.PN ---
Subjective Progress Note Date: 07/28/23 This is a pleasant 63-year-old male who was admitted under Gen. surgery services and underwent left colectomy for colon cancer. Patient reports he had an outpatient colonoscopy that was performed and a biopsy was obtained that was positive for cancer and patient was scheduled today for left colectomy. Patient follows with an outside physician as well as [facility] with history of multiple myeloma, significant dental disease and recently has had all of his teeth removed for dental implants. Patient denies smoking and denies any illicit drug use or alcohol. We are placed on consult for medical management postoperatively. 07/27. Patient seen and examined. Currently on clear liquid diet. Denies any nausea or vomiting. 07/28. Patient seen and examined. No acute overnight.still not passing any gas. Denies abdominal pain. REVIEW OF SYSTEMS: CONSTITUTIONAL: No fever, no malaise,. CARDIOVASCULAR: No chest pain, no palpitations, no syncope. PULMONARY: No shortness of breath, no cough, GASTROINTESTINAL: No diarrhea, no nausea, no vomiting, no abdominal pain. NEUROLOGICAL: No headaches, no weakness, PHYSICAL EXAMINATION: GENERAL: The patient is alert and oriented x3, not in any acute distress. Well developed, well nourished. HEENT: Pupils are round and equally reacting to light. EOMI. No scleral icterus. No conjunctival pallor. Normocephalic, atraumatic. No pharyngeal erythema. No thyromegaly. CARDIOVASCULAR: S1 and S2 present. No murmurs, rubs, or gallops. PULMONARY: Chest is clear to auscultation, no wheezing or crackles. ABDOMEN: Laparotomy surgical incision seen, wound VAC in place MUSCULOSKELETAL: No joint swelling or deformity. EXTREMITIES: No cyanosis, clubbing, or pedal edema. NEUROLOGICAL: Gross neurological examination did not reveal any focal deficits. SKIN: No rashes. Assessment and plan Left colon cancer, status post left colectomy postop day 0 History of positive biopsy for colon cancer on colonoscopy most recently History of multiple myeloma and follows with oncology at [facility] History of significant dental disease History of ADD/ADHD obesity with a BMI of 34.3 Monitor vital signs Monitor CBC Monitor CMP Continue antiemetics Continue IV fluids Continue pain management Continue diet per surgery, currently on clear liquid diet, Continue home meds Labs and medication were reviewed.. Continue same treatment. Continue with symptomatic treatment. Resume home medication. Monitor labs and vitals. DVT and GI prophylaxis. Further recommendations as per clinical course of the patient Dictation was produced using [employer] dictation software. please excuse any grammatical, word or spelling errors. Objective - Vital Signs Vital signs: Vital Signs Temp 99.0 F 07/28/23 07:35 Pulse 76 07/28/23 07:35 Resp 18 07/28/23 07:35 BP 123/62 07/28/23 07:35 Pulse Ox 96 07/28/23 07:35 FiO2 Intake & Output 07/27/23 07/28/23 07/28/23 18:59 06:59 18:59 Intake Total 1500 Output Total 1501 Balance 1500 -1501 Intake: Intake, IV Titration 1500 Amount D5-0.45% NaCl with KCl 1500 20Meq/l 1,000 ml @ 125 mls/hr IV .Q8H [facility] Rx#: [id number] Output: Urine 1500 Stool 1 Other: Voiding Method Toilet Toilet Urinal Urinal # Voids 4 3 2 - Labs CBC & Chem 7: 07/27/23 06:08 07/27/23 06:08 Labs: Abnormal Lab Results - Last 24 Hours (Table) 07/27/23 07/27/23 Range/Units 06:08 06:08 RBC 3.70 L (4.40-5.60) X 10*6/uL Hgb 9.9 L (13.0-17.0) g/dL Hct 31.8 L (39.6-50.0) % MCH 26.8 L (27.0-32.0) pg MCHC 31.1 L (32.0-37.0) g/dL BUN 6.7 L (9.0-27.0) mg/dL BUN/Creatinine Ratio 9.57 L (12.00-20.00) Ratio Glucose 129 H (70-110) mg/dL
[2023-07-28] MEDS: HYDROcodone/APAP 5-325MG 1 EACH TAB PO PRN ×2 (14:00→21:08)
[2023-07-29] MEDS: LACTATED RINGERS 1,000 ML IV SCH (01:44)
[2023-07-29] MEDS: D5-0.45% NACL WITH KCL 20MEQ/L 1,000 ML IV SCH ×3 (01:54→14:33)
[2023-07-29] MEDS: HYDROcodone/APAP 5-325MG 1 EACH TAB PO PRN ×2 (08:57→20:38)
[2023-07-29] MEDS: FAMOTIDINE 20 MG/2 ML VIAL IV SCH ×2 (08:57→20:38)
[2023-07-29] MEDS: MULTIVITAMINS, THERA 1 EACH TAB PO SCH (09:39)
[2023-07-29] MEDS: ASCORBIC ACID 500 MG TAB PO SCH ×2 (09:39→20:38)
[2023-07-29] MEDS: ACYCLOVIR 200 MG CAP PO SCH ×2 (09:39→20:38)
[2023-07-29] MEDS: MAGNESIUM OXIDE 400 MG TAB PO SCH (09:40)
[2023-07-29] MEDS: CYANOCOBALAMIN 500 MCG TAB PO SCH (09:40)
[2023-07-29] MEDS: ALVIMOPAN 12 MG CAPSULE PO SCH ×2 (09:40→20:50)
[2023-07-29] MEDS: CALCIUM CARB-VIT D 500 MG-5 MCG TAB PO SCH ×2 (09:40→20:38)
[2023-07-29] MEDS: PANTOPRAZOLE 40 MG TABLET PO SCH (09:40)
[2023-07-29] MEDS: NON FORMULARY DRUG (Lenalidomide [Revlimid] 25 MG Capsule) PO SCH (09:43)
--- NOTE | 2023-07-29 14:16 | P.PN ---
Subjective Progress Note Date: 07/29/23 CHIEF COMPLAINT: Colon cancer HISTORY OF PRESENT ILLNESS: Patient postop day #3 status post left colectomy. He reports his pain is tolerable. He did have nausea earlier. 3 small bowel movements yesterday and a tiny flatus. Did have a low-grade temp of 100.1 yesterday PHYSICAL EXAM: VITAL SIGNS: Reviewed. GENERAL: Well-developed in no acute distress. ABDOMEN: Soft. Mildly distended. Mild tenderness at incision site. Prevana wound vac intact NEUROLOGIC: Alert and oriented. Cranial nerves II through XII grossly intact. ASSESSMENT: 1. Left colon cancer status post left colectomy PLAN: -Encourage patient to ambulate. Consult physical therapy -Advance diet to full liquids -Discontinue IV fluids -Encourage patient to do deep breathing exercises. Unable to use incentive spirometer due to recent surgery on his mouth. -GI prophylaxis Protonix and DVT prophylaxis subcu heparin Physician Social Welfare Administrator note has been reviewed by physician. Signing provider agrees with the documented findings, assessment, and plan of care. Objective - Vital Signs Vital signs: Vital Signs Temp 98.1 F 07/29/23 12:07 Pulse 82 07/29/23 12:07 Resp 16 07/29/23 12:07 BP 123/70 07/29/23 12:07 Pulse Ox 94 L 07/29/23 12:07 FiO2 Intake & Output 07/28/23 07/29/23 07/29/23 18:59 06:59 18:59 Intake Total 1500 480 Output Total 1200 Balance 300 480 Intake: Intake, IV Titration 1500 Amount D5-0.45% NaCl with KCl 1500 20Meq/l 1,000 ml @ 125 mls/hr IV .Q8H [facility] Rx#: [id number] Oral 480 Output: Stool 1200 Other: Voiding Method Toilet Urinal # Voids 2 - Labs CBC & Chem 7: 07/27/23 06:08 07/27/23 06:08
--- NOTE | 2023-07-29 19:45 | P.PN ---
Subjective Progress Note Date: 07/29/23 This is a pleasant 63-year-old male who was admitted under Gen. surgery services and underwent left colectomy for colon cancer. Patient reports he had an outpatient colonoscopy that was performed and a biopsy was obtained that was positive for cancer and patient was scheduled today for left colectomy. Patient follows with an outside physician as well as [facility] with history of multiple myeloma, significant dental disease and recently has had all of his teeth removed for dental implants. Patient denies smoking and denies any illicit drug use or alcohol. We are placed on consult for medical management postoperatively. 07/29/2023 Patient is seen in follow-up today continues to report some abdominal incision site pain and tenderness mostly having difficulty with getting up and lying back down in the bed. Patient also having some increased pain and difficulty with continued sitting for long periods of time. Patient did have 3 small bowel movements and is passing some gas only during the bowel movements otherwise tolerating clear liquids. Patient with occasional nausea with no vomiting and tolerating. Review of systems: Constitutional: No reports of fatigue, fever, or chills Cardiovascular: No reports of chest pain or palpitations Respiratory: No reports of shortness of breath or cough GI: reports of occasional nausea, no vomiting, reports 3 small loose bowel mo vements : No reports of dysuria or retention Neurovascular: reports of generalized weakness and difficulty in getting up and down but reports is mostly due to the incision site All medications have been reviewed PHYSICAL EXAMINATION: GENERAL: The patient is alert and oriented x4, Well developed, well nourished. Obese HEENT: Pupils are round and equally reacting to light. EOMI. no scleral icterus. No conjunctival pallor. Normocephalic, atraumatic. No pharyngeal erythema. No thyromegaly. CARDIOVASCULAR: S1 and S2 muffled PULMONARY: diminished breath sounds bilaterally with no wheezing or rhonchi noted. ABDOMEN: soft. Nontender on exam. obese. non-distended, normoactive bowel sounds. No palpable organomegaly. Prevana wound VAC with good suction and intact MUSCULOSKELETAL: No joint swelling or deformity. EXTREMITIES: No cyanosis, clubbing, or pedal edema. NEUROLOGICAL: Gross neurological examination did not reveal any focal deficits. Diffuse weakness SKIN: No rashes. Assessment: Left colon cancer, status post left colectomy History of positive biopsy for colon cancer on colonoscopy most recently History of multiple myeloma and follows with oncology at of [facility] History of significant dental disease with recent dental surgery History of ADD/ADHD obesity with a BMI of 34.3 GI prophylaxis DVT prophylaxis Full code Plan: Recommend to continue with current medications and management per general surgery services Patient is currently maintained on clear liquids per surgery recommendations and being slowly advanced to full liquids Encouraged incentive spirometer although patient reports he cannot use as he just had teeth removed this week on the uppers and unable to suck. Encouraged deep breathing frequent times at least 10 times every hour while awake Encouraged increased activity as tolerated. PT/OT therapy to evaluate the patient Encouraged oral intake. We will continue to follow during hospitalization with general surgery services. Thank you kindly for this consultation. The impression and plan of care has been dictated by Janene Watson, nurse practitioner as directed. Dr. Irene MD I have performed a history and examination and MDM of this patient, discussed the same with the dictator, and agree with the dictator's assessment and plan as written ,documented as a scribe. Based on total visit time, I have performed more than 50% of the visit. Any additional findings or plans will be noted. Objective - Vital Signs Vital signs: Vital Signs Temp 97.6 F 07/29/23 07:27 Pulse 77 07/29/23 07:27 Resp 16 07/29/23 07:27 BP 145/73 07/29/23 07:27 Pulse Ox 96 07/29/23 07:27 FiO2 Intake & Output 07/28/23 07/29/23 07/29/23 18:59 06:59 18:59 Intake Total 1500 480 Output Total 1200 Balance 300 480 Intake: Intake, IV Titration 1500 Amount D5-0.45% NaCl with KCl 1500 20Meq/l 1,000 ml @ 125 mls/hr IV .Q8H [facility] Rx#: [id number] Oral 480 Output: Stool 1200 Other: Voiding Method Toilet Urinal # Voids 2 - Labs CBC & Chem 7: 07/27/23 06:08 07/27/23 06:08
[2023-07-29] MEDS: HEPARIN SODIUM,PORCINE 5,000 UNIT/ML 1 ML VIAL SQ SCH (20:50)
[2023-07-30] MEDS: LACTATED RINGERS 1,000 ML IV SCH (06:05)
[2023-07-30] MEDS: ASCORBIC ACID 500 MG TAB PO SCH (08:50)
[2023-07-30] MEDS: CYANOCOBALAMIN 500 MCG TAB PO SCH (08:50)
[2023-07-30] MEDS: FAMOTIDINE 20 MG/2 ML VIAL IV SCH (08:50)
[2023-07-30] MEDS: MAGNESIUM OXIDE 400 MG TAB PO SCH (08:50)
[2023-07-30] MEDS: HEPARIN SODIUM,PORCINE 5,000 UNIT/ML 1 ML VIAL SQ SCH (08:50)
[2023-07-30] MEDS: ACYCLOVIR 200 MG CAP PO SCH (08:50)
[2023-07-30] MEDS: PANTOPRAZOLE 40 MG TABLET PO SCH (08:50)
[2023-07-30] MEDS: CALCIUM CARB-VIT D 500 MG-5 MCG TAB PO SCH (08:50)
[2023-07-30] MEDS: MULTIVITAMINS, THERA 1 EACH TAB PO SCH (08:50)
[2023-07-30] MEDS: ALVIMOPAN 12 MG CAPSULE PO SCH (08:51)
[2023-07-30] MEDS: NON FORMULARY DRUG (Lenalidomide [Revlimid] 25 MG Capsule) PO SCH (08:51)
[2023-07-30] MEDS: HYDROcodone/APAP 5-325MG 1 EACH TAB PO PRN (08:54)
[2023-07-30 09:09] LABS: HCT 37.2 % (39.0-53.0); MCH 27.3 pg (25.0-35.0); MCHC 32.3 g/dL (31.0-37.0); MCV 84.5 fL (80.0-100.0); Mean Platelet Volume 8.8; Platelet Count 218 k/uL (150-450); RDW 14.5 % (11.5-15.5); WBC 6.6 k/uL (3.8-10.6)
[2023-07-30 09:30] LABS: Potassium 4.4 mmol/L (3.5-5.1)
[2023-07-30 09:31] LABS: African American GFR (CKD) >90 (>60 ml/min/1.73 sqM); Anion Gap 5 mmol/L; Blood Urea Nitrogen 5 mg/dL (9-20); Calcium 9.3 mg/dL (8.4-10.2); Carbon Dioxide 28 mmol/L (22-30); Chloride 105 mmol/L (98-107); Glucose 115 mg/dL (74-99); Non-African American GFR(CKD) >90 (>60 ml/min/1.73 sqM); Sodium 138 mmol/L (137-145)
--- NOTE | 2023-07-30 13:05 | P.DS ---
Providers Date of admission: 07/26/23 05:41 Expected date of discharge: 07/30/23 Attending physician: Shaun Gardner Consults: 07/26/23 08:48 Consult Physician Routine Consulting Provider: George Sanchez Consult Reason/Comments: Medical management Do you want consulting provider notified?: Yes Primary care physician: Stated None Hospital Course: Discharge diagnosis 1. Left colon cancer status post left colectomy Hospital course This is a 63-year-old male with left colon cancer. He is status post left colectomy. His pain is controlled. He is tolerating diet. He has been up ambulating. He is having bowel movements. He is afebrile. He is stable for discharge. Please refer to chart for any further details. [employer] [employer] [facility] Supervisor note has been reviewed by physician. Signing provider agrees with the documented findings, assessment, and plan of care. Patient Condition at Discharge: Stable Plan - Discharge Summary Discharge Rx Participant: Yes New Discharge Prescriptions: New Ibuprofen [Motrin] 600 mg PO Q8HR PRN #30 tab PRN Reason: Pain HYDROcodone/APAP 5-325MG [Beason 5-325] 1 tab PO Q6HR PRN 3 Days #12 tab PRN Reason: Pain No Action dexAMETHasone [Decadron] 40 mg PO WEEKLY Omeprazole [PriLOSEC] 20 mg PO DAILY Lenalidomide [Revlimid] 25 mg PO DAILY Aspirin 81 mg PO DAILY Acyclovir [Zovirax] 400 mg PO BID Daratumumab [Darzalex] 1,800 mg IV Q30D Magnesium 400 mg PO DAILY Ascorbic Acid [Vitamin C] 1,000 mg PO BID Bortezomib 2 mg IJ WEEKLY Ondansetron [Zofran] 4 mg PO Q6HR PRN PRN Reason: Nausea Docusate [Colace] 50 mg PO Q4-6H PRN PRN Reason: Constipation Multivitamin [Multivitamins Adult Gummies] 1 each PO DAILY Calcium Carbonate/Vitamin D3 [Calcium 500 mg-Vit D3 5 mcg (200 Unit)] 1 each PO BID Cyanocobalamin (Vitamin B-12) [Vitamin B-12] 500 mcg PO DAILY Discharge Medication List Acyclovir [Zovirax] 400 mg PO BID 07/05/23 [History] Ascorbic Acid [Vitamin C] 1,000 mg PO BID 07/05/23 [History] Aspirin 81 mg PO DAILY 07/05/23 [History] Bortezomib 2 mg IJ WEEKLY 07/05/23 [History] Calcium Carbonate/Vitamin D3 [Calcium 500 mg-Vit D3 5 mcg (200 Unit)] 1 each PO BID 07/05/23 [History] Cyanocobalamin (Vitamin B-12) [Vitamin B-12] 500 mcg PO DAILY 07/05/23 [History] Daratumumab [Darzalex] 1,800 mg IV Q30D 07/05/23 [History] Docusate [Colace] 50 mg PO Q4-6H PRN 07/05/23 [History] Lenalidomide [Revlimid] 25 mg PO DAILY 07/05/23 [History] Magnesium 400 mg PO DAILY 07/05/23 [History] Multivitamin [Multivitamins Adult Gummies] 1 each PO DAILY 07/05/23 [History] Omeprazole [PriLOSEC] 20 mg PO DAILY 07/05/23 [History] Ondansetron [Zofran] 4 mg PO Q6HR PRN 07/05/23 [History] dexAMETHasone [Decadron] 40 mg PO WEEKLY 07/05/23 [History] HYDROcodone/APAP 5-325MG [Beason 5-325] 1 tab PO Q6HR PRN 3 Days #12 tab 07/30/23 [Rx] Ibuprofen [Motrin] 600 mg PO Q8HR PRN #30 tab 07/30/23 [Rx] Follow up Appointment(s)/Referral(s): Andra Horan PAC [Family Provider] - 1-2 Days [facility] Visiting Nurse, [NON-STAFF] - 1 Week Shaun Gardner MD [STAFF PHYSICIAN] - 1 Week Activity/Diet/Wound Care/Special Instructions: PCP: Andra Horan PA-C - [facility] - [id number] [place] [address] - Patient staying at parents' home at D/C - [address] [place] [address] No [address] while taking Beason No lifting over 10 pounds Shower daily. No soaking or tub baths for 2 weeks Very light activity until you are reevaluated at your follow up appointment with your surgeon Prevana wound vac to be removed on 08/02/23. Patient then can shower and wash incision with soap and water. Can leave incision uncovered or cover with gauze. Discharge Disposition: HOME WITH HOME HEALTH SERVICES
[2023-07-30 13:20] VITALS: BP 104/66; PULSE 87; RESP 17; TEMP 98.7
--- NOTE | 2023-07-31 05:33 | P.PN ---
Subjective Progress Note Date: 07/30/23 This is a pleasant 63-year-old male who was admitted under Gen. surgery services and underwent left colectomy for colon cancer. Patient reports he had an outpatient colonoscopy that was performed and a biopsy was obtained that was positive for cancer and patient was scheduled today for left colectomy. Patient follows with an outside physician as well as [facility] with history of multiple myeloma, significant dental disease and recently has had all of his teeth removed for dental implants. Patient denies smoking and denies any illicit drug use or alcohol. We are placed on consult for medical management postoperatively. 07/29/2023 Patient is seen in follow-up today continues to report some abdominal incision site pain and tenderness mostly having difficulty with getting up and lying back down in the bed. Patient also having some increased pain and difficulty with continued sitting for long periods of time. Patient did have 3 small bowel movements and is passing some gas only during the bowel movements otherwise tolerating clear liquids. Patient with occasional nausea with no vomiting and tolerating. 07/30/2023 Patient is seen in follow-up this morning with general surgery following. Patient continues to have some abdominal discomfort although it is slightly impr tomas from yesterday. Patient tolerating diet and has been advanced to full liquids and patient reports is having bowel movements. Patient slowly to advance diet per surgery recommendations. Patient will need outpatient follow- up with general surgery as well as his oncologist out of [facility]. Patient is afebrile with no reported chest pain or shortness of breath. Patient to follow-up with dentist sometime this week regarding dentures as well. Encouraged to continue deep breathing and increase activity as tolerated. Patient is medically stable for discharge once cleared by general surgery. Review of systems: Constitutional: No reports of fatigue, fever, or chills Cardiovascular: No reports of chest pain or palpitations Respiratory: No reports of shortness of breath or cough GI: reports of occasional nausea, no vomiting, reports having some bowel movements : No reports of dysuria or retention Neurovascular: reports of generalized weakness and difficulty in getting up and down but reports is mostly due to the incision site, although slightly improved All medications have been reviewed PHYSICAL EXAMINATION: GENERAL: The patient is alert and oriented x4, Well developed, well nourished. Obese HEENT: Pupils are round and equally reacting to light. EOMI. no scleral icterus. No conjunctival pallor. Normocephalic, atraumatic. No pharyngeal erythema. No thyromegaly. CARDIOVASCULAR: S1 and S2 muffled PULMONARY: diminished breath sounds bilaterally with no wheezing or rhonchi noted. ABDOMEN: soft. Nontender on exam. obese. non-distended, normoactive bowel sounds. No palpable organomegaly. Prevana wound VAC with good suction and intact MUSCULOSKELETAL: No joint swelling or deformity. EXTREMITIES: No cyanosis, clubbing, or pedal edema. NEUROLOGICAL: Gross neurological examination did not reveal any focal deficits. Diffuse weakness SKIN: No rashes. Assessment: Left colon cancer, status post left colectomy History of positive biopsy for colon cancer on colonoscopy most recently History of multiple myeloma and follows with oncology at [facility] History of significant dental disease with recent dental surgery History of ADD/ADHD obesity with a BMI of 34.3 GI prophylaxis DVT prophylaxis Full code Plan: Recommend to continue with current medications and management per general surgery services Patient is currently maintained on full liquids per surgery recommendations and tolerating. To be advanced per surgery Encouraged continued deep breathing as patient reports he cannot use the incentive spirometer as he just had teeth removed this week on the uppers and unable to suck. Encouraged increased activity as tolerated. Encouraged oral intake. We will continue to follow during hospitalization with general surgery services. Thank you kindly for this consultation. Patient is medically stable for discharge and close outpatient follow-up once cleared by surgery The impression and plan of care has been dictated by Janene Watson, nurse practitioner as directed. Dr. Irene MD I have performed a history and examination and MDM of this patient, discussed the same with the dictator, and agree with the dictator's assessment and plan as written ,documented as a scribe. Based on total visit time, I have performed more than 50% of the visit. Any additional findings or plans will be noted. Objective - Vital Signs Vital signs: Vital Signs Temp 98.4 F 07/30/23 07:42 Pulse 77 07/30/23 07:42 Resp 16 07/30/23 07:42 BP 110/69 07/30/23 07:42 Pulse Ox 96 07/30/23 07:42 FiO2 Intake & Output 07/29/23 07/30/23 07/30/23 18:59 06:59 18:59 Output Total 1200 Balance -1200 Output: Stool 1200 Other: Voiding Method Toilet Urinal # Voids 1 - Labs CBC & Chem 7: 07/30/23 08:56 07/30/23 08:56 Labs: Abnormal Lab Results - Last 24 Hours (Table) 07/30/23 07/30/23 Range/Units 08:56 08:56 Hgb 12.0 L (13.0-17.5) gm/dL Hct 37.2 L (39.0-53.0) % BUN 5 L (9-20) mg/dL Creatinine 0.56 L (0.66-1.25) mg/dL Glucose 115 H (74-99) mg/dL
== END 2023-07-30 15:57 | disposition home health service (06) | DRG 330 ==
LOC: 2ORMAIN 05:41 → 5NMEDONC 12:44
PROVIDERS: ADMIT Surgery; ATTEND Surgery
PROC: 0DTG0ZZ Resection of Left Large Intestine, Open Approach (ICD-10-PCS; principal; 2023-07-26 07:00)
DX: C18.6 Malignant neoplasm of descending colon (principal); C90.00 Multiple myeloma not having achieved remission; E66.9 Obesity, unspecified; Z68.34 Body mass index [BMI] 34.0-34.9, adult; Z79.82 Long term (current) use of aspirin; K08.409 Partial loss of teeth, unspecified cause, unspecified class; Z79.899 Other long term (current) drug therapy; Z88.0 Allergy status to penicillin
CPT/HCPCS: 64488; 80048; 83735; 85025; 85027; 88309

== ENCOUNTER 2023-09-10 08:53 | Day surgery (SDC) | payer BC ==
[~2023-09-10 08:53] MED LIST changes: -ACETAMINOPHEN TAB 500 MG TAB PO PRN; -HEPARIN SODIUM,PORCINE 5,000 UNIT/ML 1 ML VIAL SQ PRN; +HYDROmorphone 0.5 MG/0.5 ML SYRINGE IVP PRN; +LIDOCAINE 1% (10MG/ML) FOR IV START INTRADERMA PRN; +MIDAZOLAM 2 MG/2 ML VIAL IV PRN; +Pre Op ABX Message 1 EACH MISC MISCELLANE ONE; -metroNIDAZOLE-NS PMX 500 MG in SALINE 1 100ML.BAG IVPB PRN
[2023-09-10] MEDS: LACTATED RINGERS 1,000 ML IV SCH (09:30)
[2023-09-10] MEDS ORDERED: PROPOFOL 10 MG/ML 20 ML VIAL IV ONE (09:45)
[2023-09-10] MEDS ORDERED: MIDAZOLAM 2 MG/2 ML VIAL ONE (09:45)
[2023-09-10] MEDS ORDERED: LIDOCAINE 1% INJ 10MG/ML (20 ML MDV) ONE (09:45)
[2023-09-10] MEDS ORDERED: fentaNYL (PF) 50 MCG/ML 2 ML AMP ONE (09:45)
[2023-09-10] MEDS: DEXAMETHASONE SOD PHOSPHATE 4 MG/ML 1 ML VIAL IV ONE (09:47)
[2023-09-10] MEDS: ONDANSETRON 4 MG/2 ML VIAL IVP ONE (09:47)
[2023-09-10] MEDS: HEPARIN SODIUM,PORCINE 5,000 UNIT/ML 1 ML VIAL SQ PRN (09:47)
[2023-09-10] MEDS: ACETAMINOPHEN TAB 500 MG TAB PO PRN (09:47)
[2023-09-10 09:48] VITALS: RESP 16
[2023-09-10] MEDS: LIDOCAINE 1%/EPI 1:200,000 MPF 10 ML VIAL SQ ONE ×2 (09:50→10:23)
[2023-09-10] MEDS: IOPAMIDOL M200 10 ML VIAL MISCELLANE ONE (10:12)
--- NOTE | 2023-09-10 10:39 | P.OP ---
Date of Procedure: 09/10/23 Preoperative Diagnosis: Colon cancer Postoperative Diagnosis: Colon cancer Procedure(s) Performed: Insertion of right subclavian Port-A-Cath Anesthesia: MARY Surgeon: Shaun Gardner Estimated Blood Loss (ml): 5 Pathology: none sent Condition: stable Disposition: PACU Description of Procedure: LeThe patient was placed on the operating table in the supine position. The patient received IV sedation. The patient's chest was prepped and draped in the usual sterile fashion. A roll had been placed between the shoulder blades in a longitudinal fashion. After prepping and draping the skin was anesthetized 1% local Xylocaine. And then using the Seldinger technique the subclavian vein was cannulated. A wire was placed into the vein and fluoroscopy position the wire at the atrial caval junction. Next the dilator sheath was placed over top the wire and the wire was withdrawn. The catheter was positioned at the atriocaval position. The catheter was placed through the sheath after the dilator was withdrawn. The sheath was then withdrawn. Position of the catheter was confirmed with fluoroscopy. The Port-A-Cath was connected to the catheter. The Port-A-Cath was flushed with saline and then heparinized saline. The skin was closed interrupted 3-0 Monocryl suture. Dermabond was applied. Patient tolerated procedure well and was sent to recovery room stable condition.
--- NOTE | 2023-09-10 10:55 | XR ---
EXAMINATION TYPE: XR chest 1V portable DATE OF EXAM: 09/10/2023 COMPARISON: 06/29/2022 HISTORY: Shortness of breath TECHNIQUE: Frontal and lateral views of the chest are obtained. FINDINGS: Scattered senescent parenchymal changes noted. Hyperinflation compatible with COPD. Right subclavian Port-A-Cath is appropriately placed with distal tip overlying the SVC. No evidence for pneumothorax. No evidence for infiltrate. No evidence for atelectasis. Heart size is stable. Mediastinal structures are stable and grossly unremarkable. No evidence for hilar prominence. Degenerative changes dorsal spine. IMPRESSION: 1. No evidence for acute pulmonary disease.
[2023-09-10 10:56] VITALS: TEMP 97
--- NOTE | 2023-09-10 10:59 | FL ---
Fluoroscopy History: PORT A CATH INSERTION dap [id number] fl 9.6 port a cath insertion
[2023-09-10 11:33] VITALS: BP 128/66; PULSE 75
== END 2023-09-10 11:49 | disposition home or self-care (01) ==
LOC: OR 08:53
PROVIDERS: ATTEND Surgery
DX: Z45.2 Encounter for adjustment and management of vascular access device (principal); K21.9 Gastro-esophageal reflux disease without esophagitis; C90.00 Multiple myeloma not having achieved remission; Z79.899 Other long term (current) drug therapy; Z88.0 Allergy status to penicillin
CPT/HCPCS: 77001; 71045; 36561; C1788; J2250; J1644; J1100; J2405; J2001; J3010; J1642; J2704

== ENCOUNTER → 2024-02-19 | Outpatient (CLI) | payer BC ==
--- NOTE | 2024-03-14 07:31 | CT ---
Site ID synapse default Patient Elgin Graham C ID [id number] Age/Gender: 64Y, M Order # N/A Procedure Thorax^CHEST_ABD_PELVISCustomized (Adult) Date 02/19/2024 11:46:53 AM EXAMINATION TYPE: CT ChestAbdPelvis w con CT DLP: 2175 mGycm, Automated exposure control for dose reduction was used. DATE OF EXAM: 02/26/2024 4:50 PM COMPARISON: Chest radiograph 09/10/2023 CLINICAL INDICATION: Male, 64 year old with history of carcinoma of the descending colon. Technique: Multiple axial images of the chest, abdomen, and pelvis were obtained following the intrav enous administration of 100 mL Isovue-300. Oral contrast was administered. Two-dimensional coronal an d sagittal reconstructions were obtained. Findings: CHEST: LUNGS/ PLEURA: No pleural effusion, pneumothorax, or focal consolidation. No suspicious pulmonary nod ule or mass. AIRWAY: Patent and unremarkable.. HEART: Size within normal limits. No pericardial effusion. Small coronary arterial calcifications. MEDIASTINUM: No evidence of adenopathy. VASCULATURE: Conventional three-vessel aortic arch. Aneurysm dilatation of the ascending thoracic aor ta measuring up to 4.3 cm (series 2, image 26). No extension into the aortic arch. Aortic root measur es up to 3.7 cm. Descending thoracic aorta measures up to 3.0 cm. Right anterior chest wall IJ Medipo rt catheter distal tip terminating at the low SVC. MUSCULOSKELETAL: No acute osseous abnormalities. Remote anterior right fifth rib fracture. Remote pos terior left seventh rib fracture. No aggressive osseous lesion. Small right posterior deltoid intramu scular lipoma. SOFT TISSUES/LYMPH NODES: Unremarkable. LOWER NECK: No significant findings. ABDOMEN: ABDOMEN LIVER: Unremarkable GALLBLADDER AND BILE DUCTS: Contracted gallbladder with wall edema identified. No biliary duct dilata tion. PANCREAS: Unremarkable. SPLEEN: Mildly enlarged measuring 15.2 cm in AP dimension. ADRENAL GLANDS: Unremarkable. KIDNEYS AND URETERS: No evidence of hydronephrosis or renal calculus. The kidneys enhance symmetrical ly. Contrast is demonstrated within both collecting systems on delayed phase. Subcentimeter hypodense focus within the left kidney which is too small to characterize but likely represents a cyst. PELVIS BLADDER: Unremarkable REPRODUCTIVE: Prostate is enlarged in size measuring 5.2 cm in transverse dimension. Central dystroph ic prostate calcifications. ABDOMEN & PELVIS STOMACH AND BOWEL: Stomach and duodenum are unremarkable. Enteric contrast reaches the distal transve rse colon. Postsurgical changes of the sigmoid descending colon with anastomosis identified. No wall thickening is abnormal soft tissue identified at the anastomotic site. Limited evaluation of the colo n due to presence of stool. No evidence of bowel obstruction. PERITONEUM: No evidence of pneumoperitoneum or free fluid. VASCULATURE: Mild atherosclerotic calcifications are present throughout the abdominal aorta and its b ranches. No abdominal aortic aneurysm. MUSCULOSKELETAL: No acute osseous abnormalities. No aggressive osseous lesion. LYMPH NODES: No gross evidence for lymphadenopathy. SOFT TISSUE/ABDOMINAL WALL: Postsurgical changes in the anterior wall at midline. IMPRESSION: 1. Postsurgical changes of the descending colon with anastomosis identified. No suspicious soft tiss ue at the anastomotic site to suggest recurrence. No CT evidence for metastasis within the chest, abd omen and pelvis. 2. Ascending thoracic aortic aneurysm measuring up to 4.3 cm. 3. Nonspecific contracted gallbladder with wall edema. This can be further evaluated with ultrasound as clinically indicated. 4. Prostatomegaly. 5. Mild splenomegaly.
== END | disposition home or self-care (01) ==
LOC: RADPROMAIN 10:08
PROVIDERS: ATTEND Internal Medicine Hematology & Oncology
DX: C18.6 Malignant neoplasm of descending colon (principal); I71.21 Aneurysm of the ascending aorta, without rupture; N40.0 Benign prostatic hyperplasia without lower urinary tract symptoms; R16.1 Splenomegaly, not elsewhere classified; Z85.038 Personal history of other malignant neoplasm of large intestine
CPT/HCPCS: 71260; 74177; J1642; Q9967

== ENCOUNTER → 2024-06-17 | Outpatient (CLI) | payer BC ==
[2024-06-17 10:31] LABS: African American GFR (CKD) >90 (>60 ml/min/1.73 sqM); Blood Urea Nitrogen 10 mg/dL (9-20); Non-African American GFR(CKD) >90 (>60 ml/min/1.73 sqM)
--- NOTE | 2024-06-17 13:18 | CT ---
EXAMINATION TYPE: CT ChestAbdPelvis w con CT DLP: 1212.2 mGycm, Automated exposure control for dose reduction was used. DATE OF EXAM: 06/17/2024 11:57 AM COMPARISON: CT chest abdomen and pelvis 02/26/2024, left humerus radiograph 06/29/2022 CLINICAL INDICATION:Male, 64 years old with history of C18.6 Colon cancer; PHH, h/o multiple myeloma and colon CA f/u Technique: Multiple axial images of the chest, abdomen, and pelvis were obtained following the intrav enous administration of 100 mL Isovue-300. Oral contrast was administered. Two-dimensional coronal an d sagittal reconstructions were obtained. Findings: CHEST: LUNGS/ PLEURA: No pleural effusion, pneumothorax, or focal consolidation. No suspicious pulmonary nod ule or mass. AIRWAY: Patent and unremarkable.. HEART: Size within normal limits. No pericardial effusion. Small coronary arterial calcifications. MEDIASTINUM: No evidence of adenopathy. VASCULATURE: Conventional three-vessel aortic arch. Aneurysm dilatation of the ascending thoracic aor ta measuring up to 4.3 cm. No extension into the aortic arch. Aortic root measures up to 3.7 cm. Desc ending thoracic aorta measures up to 3.0 cm. Right anterior chest wall IJ Mediport catheter distal ti p terminating at the low SVC. MUSCULOSKELETAL: No acute osseous abnormalities. Remote anterior right fifth rib fracture. Remote pos terior left seventh rib fracture. No aggressive osseous lesion. Small right posterior deltoid intramu scular lipoma. Remote nondisplaced fracture of the left proximal humeral diaphysis redemonstrated wit h possible position of a 3.9 cm intramedullary lesion. SOFT TISSUES/LYMPH NODES: Unremarkable. LOWER NECK: No significant findings. ABDOMEN: ABDOMEN LIVER: Unremarkable GALLBLADDER AND BILE DUCTS: Unremarkable. PANCREAS: Unremarkable. SPLEEN: Mildly enlarged measuring 15.0 cm in AP dimension. ADRENAL GLANDS: Unremarkable. KIDNEYS AND URETERS: No evidence of hydronephrosis or renal calculus. The kidneys enhance symmetrical ly. Contrast is demonstrated within both collecting systems on delayed phase. Subcentimeter hypodense focus within the left kidney which is too small to characterize but likely represents a cyst. PELVIS BLADDER: Unremarkable REPRODUCTIVE: Prostate is enlarged in size measuring 5.0 cm in transverse dimension. Central dystroph ic prostate calcifications. ABDOMEN & PELVIS STOMACH AND BOWEL: Stomach and duodenum are unremarkable. Enteric contrast reaches the rectum. Postsu rgical changes of the sigmoid descending colon with anastomosis identified. No wall thickening is abn ormal soft tissue identified at the anastomotic site. No evidence of bowel obstruction. PERITONEUM: No evidence of pneumoperitoneum or free fluid. VASCULATURE: Mild atherosclerotic calcifications are present throughout the abdominal aorta and its b ranches. No abdominal aortic aneurysm. MUSCULOSKELETAL: No acute osseous abnormalities. No aggressive osseous lesion. LYMPH NODES: No evidence for lymphadenopathy. SOFT TISSUE/ABDOMINAL WALL: Postsurgical changes in the anterior wall at midline. IMPRESSION: 1. Postsurgical changes of the colon with anastomosis identified. No suspicious soft tissue at the a nastomotic site to suggest recurrence. No lymphadenopathy within the chest, abdomen or pelvis. No shira picious pulmonary nodules. 2. Stable ascending thoracic aortic aneurysm measuring up to 4.3 cm. 3. Redemonstration of pathologic fracture with soft tissue lesion involving the proximal left joseph l diaphysis dating back to 2021. Possibly related to reported history of multiple myeloma. 4. Mild splenomegaly. [facility], , 06/17/2024 1:15 PM
== END | disposition home or self-care (01) ==
LOC: RADPROMAIN 09:24
PROVIDERS: ATTEND Internal Medicine Hematology & Oncology
DX: C90.00 Multiple myeloma not having achieved remission (principal); C18.6 Malignant neoplasm of descending colon; C79.51 Secondary malignant neoplasm of bone; Z71.3 Dietary counseling and surveillance; I71.21 Aneurysm of the ascending aorta, without rupture; R16.1 Splenomegaly, not elsewhere classified; Z98.890 Other specified postprocedural states
CPT/HCPCS: 82565; 84520; 71260; 74177; J1642; Q9967

== ENCOUNTER → 2024-09-17 | Day surgery (SDC) | payer BC ==
[~2024-09-17] MED LIST changes: -HYDROmorphone 0.5 MG/0.5 ML SYRINGE IVP PRN; -MIDAZOLAM 2 MG/2 ML VIAL IV PRN; +PHENYLEPHRINE-0.9% NACL SYG 1,000 MCG/10 ML SYRINGE ONE; +PROPOFOL 10 MG/ML 20 ML VIAL IV ONE; -Pre Op ABX Message 1 EACH MISC MISCELLANE ONE
[2024-09-17 08:00] VITALS: TEMP 97.9
[2024-09-17] MEDS: LACTATED RINGERS 1,000 ML IV ONE (08:04)
[2024-09-17] MEDS: LACTATED RINGERS 1,000 ML IV SCH (08:25)
[2024-09-17] MEDS: IV FLUID CONTINUATION 1,000 ML IV ONE (08:45)
--- NOTE | 2024-09-17 08:50 | P.OP ---
Date of Procedure: 09/17/24 Preoperative Diagnosis: History of colon cancer Postoperative Diagnosis: Colon polyp Procedure(s) Performed: colonoscopy Anesthesia: MAC Surgeon: Shaun Gardner Pathology: other (Colon polyp) Condition: stable Disposition: PACU Description of Procedure: The patient was placed on the endoscopy table in the lateral position. He received IV sedation. Digital rectal exams performed. This revealed no abnormalities. The flexible colonoscope was then placed patient anus passed throughout the entire colon. The ileocecal valve was visualized. The cecum, ascending and transverse colon appeared normal. The descending colon was normal except for a small polyp which was removed with a cold forcep. This was just above the previous colorectal anastomosis. Anastomosis visualized. This appeared normal. The the visualized rectum appeared normal. Scope withdrawn for the patient.
[2024-09-17 09:20] VITALS: BP 107/63; PULSE 60; RESP 14
== END ==
LOC: ORWHC2ENDO 07:39
PROVIDERS: ATTEND Surgery
DX: Z12.11 Encounter for screening for malignant neoplasm of colon (principal); K63.5 Polyp of colon; K21.9 Gastro-esophageal reflux disease without esophagitis; C90.00 Multiple myeloma not having achieved remission; Z85.038 Personal history of other malignant neoplasm of large intestine; Z79.899 Other long term (current) drug therapy; Z88.0 Allergy status to penicillin
CPT/HCPCS: 88305; 45380; J2704; J2371

== ENCOUNTER → 2024-09-24 | Outpatient (CLI) | payer BC ==
--- NOTE | 2024-09-24 11:31 | CT ---
EXAMINATION TYPE: CT ChestAbdPelvis w con DATE OF EXAM: 09/24/2024 11:21 AM COMPARISON: 06/17/2024 CLINICAL INDICATION: Male, 64 years old with history of C18.6 COLON CANCER, TECHNIQUE: CT imaging performed with sagittal coronal reformats. CT scan of the chest, abdomen and pe lvis is performed with Oral Contrast and with IV Contrast, patient injected with 100 mL of Isovue [address] DLP: 1790 mGycm, Automated exposure control for dose reduction was used. FINDINGS: CT Chest: LUNGS: The lungs are clear and free of infiltrate or atelectasis. No pulmonary nodule or mass is det ected. No pleural effusion or CT evidence of interstitial lung disease. MEDIASTINUM: Thoracic aorta is at the upper limits of normal at 3.9 cm AP dimension. The heart is no t enlarged. No evidence for mediastinal mass or adenopathy. HEART: Size within normal limits. No significant coronary artery calcifications. HILAR STRUCTURES: No evidence for mass. No hilar adenopathy is appreciated. OTHER: No significant abnormality. CONTRAST CT ABDOMEN AND PELVIS FINDINGS: LIVER/GB: No calcified gallstones. No space occupying hepatic lesion. Biliary tree is of normal ca liber. PANCREAS: No inflammation. No distinct mass. SPLEEN: The spleen is mildly enlarged at 13.1 cm craniocaudal dimension. No lesion seen. ADRENALS: No nodule. No thickening. KIDNEYS/BLADDER: No hydronephrosis. No nephrolithiasis. No disctinct renal mass. BOWEL: Normal appendix. Normal bowel caliber. No inflammation. GENITAL ORGANS: No gross abnormality. LYMPH NODES: No greater than 1cm abdominal or pelvic lymph nodes are appreciated. AORTA: No significant abnormality. OSSEOUS STRUCTURES: No significant abnormality is seen. OTHER: No significant additional abnormality is seen. IMPRESSION: 1. Mild splenomegaly. 2. No evidence for metastatic disease or sizable recurrent disease at this time. [facility], , 09/24/2024 11:28 AM
== END | disposition home or self-care (01) ==
LOC: RADPROMAIN 09:13
PROVIDERS: ATTEND Internal Medicine Hematology & Oncology
DX: C18.6 Malignant neoplasm of descending colon (principal); C90.00 Multiple myeloma not having achieved remission; C79.51 Secondary malignant neoplasm of bone; R16.1 Splenomegaly, not elsewhere classified; Z71.3 Dietary counseling and surveillance
CPT/HCPCS: 71260; 74177; J1642; Q9967

== ENCOUNTER 2024-12-23 11:16 | Emergency (ER) | payer BC ==
[2024-12-23 11:21] VITALS: TEMP 98.2
[2024-12-23] MEDS: FAMOTIDINE 20 MG TAB PO STA (12:17)
[2024-12-23] MEDS: diphenhydrAMINE 50 MG/ML 1 ML VIAL IM STA (12:17)
[2024-12-23] MEDS: methylPREDNISolone SOD SUCCI 125 MG/2 ML VIAL IM ONE (12:20)
--- NOTE | 2024-12-23 13:27 | ED ---
Allergic Reaction HPI - General Chief complaint: Allergic Reaction Stated complaint: facial swelling Time Seen by Provider: 12/23/24 13:22 Source: patient, RN notes reviewed Mode of arrival: ambulatory Limitations: no limitations - History of Present Illness Initial Comments: 64-year-old male presenting for facial swelling x 3 hours. States he recently started a medication called Revlimid 10mg for maintenance for multiple myeloma 3 days ago. States he took the first dose Saturday night and felt some itching in the back of his head. He took the next dose Saturday night and felt the same itching. Therefore he did not take his dose last night. States he woke up this morning and noticed swelling around his cheeks and eyes. Denies difficulty breathing or swelling. Denies lip or tongue swelling. Denies chest pain or shortness of breath. States he was previously on this medication at a higher dose of 25 mg. Denies any other new medications, lotions, soaps, detergents. - Related Data Home Medications Medication Instructions Recorded Confirmed Acyclovir [Zovirax] 400 mg PO BID 07/05/23 09/17/24 Ascorbic Acid [Vitamin C] 1,000 mg PO BID 07/05/23 09/17/24 Cyanocobalamin (Vitamin B-12) 500 mcg PO DAILY 07/05/23 09/17/24 [Vitamin B-12] Docusate [Colace] 50 mg PO Q4-6H PRN 07/05/23 09/17/24 Magnesium 400 mg PO DAILY 07/05/23 09/17/24 Omeprazole [PriLOSEC] 20 mg PO DAILY 07/05/23 09/17/24 Ondansetron [Zofran] 4 mg PO Q6HR PRN 07/05/23 09/17/24 Unk 40% Urea Cream 1 applic TOPICAL BID 09/05/23 09/17/24 Acetaminophen 500 mg PO BID 09/15/24 09/17/24 Calcium Carbonate [Calcium] 1,200 mg PO DAILY 09/15/24 09/17/24 Previous Rx's Medication Instructions Recorded Famotidine [Pepcid] 40 mg PO DAILY 5 Days #5 tablet 12/23/24 predniSONE [Deltasone] 40 mg PO DAILY #10 tab 12/23/24 Allergies Allergy/AdvReac Type Severity Reaction Status Date / Time Penicillins Allergy Rash/Hives Verified 12/23/24 11:21 Review of Systems ROS Statement: Those systems with pertinent positive or pertinent negative responses have been documented in the HPI. ROS Other: All systems not noted in ROS Statement are negative. Past Medical History Past Medical History: Cancer, GERD/Reflux, Osteoarthritis (OA) Additional Past Medical History / Comment(s): multiple myeloma-tx at [facility]-last chemo tx May 2024, dental disease-has 7 teeth remaining-in process of getting dentures, colorectal stg 3 cancer History of Any Multi-Drug Resistant Organisms: None Reported Past Surgical History: Appendectomy, Bowel Resection, Orthopedic Surgery Additional Past Surgical History / Comment(s): bilateral knee surgery torn meniscus, fractured humerus left- wears brace, colonoscopy,reverse lt total shoulder replacement 07-16-24 @ [facility],bowel resection due to colorectal CA 08-31-24 Past Anesthesia/Blood Transfusion Reactions: No Reported Reaction, Family History of Problems w/ Anesthesia, Motion Sickness Additional Past Anesthesia/Blood Transfusion Reaction / Comment(s): no blood transfusion. "brother allergic to all forms of anesthesia" Past Psychological History: No Psychological Hx Reported Smoking Status: Never smoker - Past Family History Mother Family Medical History: Cancer Additional Family Medical History / Comment(s): cervical/uterine. maternal aunt breast and cervical CA Father Family Medical History: Coronary Artery Disease (CAD) Additional Family Medical History / Comment(s): heart failure Brother(s) Family Medical History: Coronary Artery Disease (CAD) Additional Family Medical History / Comment(s): cardiac Sister(s) Family Medical History: Coronary Artery Disease (CAD) General Exam Limitations: no limitations General appearance: alert, in no apparent distress Head exam: Present: atraumatic, normocephalic, normal inspection Eye exam: Present: PERRL, EOMI. Absent: normal appearance (Moderate edema around bilateral eyes, predominantly on the left side. No erythema or proptosis.), scleral icterus, conjunctival injection, periorbital swelling ENT exam: Present: normal exam, normal oropharynx, mucous membranes moist, other (No lip or tongue swelling) Neck exam: Present: normal inspection. Absent: tenderness, meningismus, lymphadenopathy Respiratory exam: Present: normal lung sounds bilaterally. Absent: respiratory distress, wheezes, rales, rhonchi, stridor Cardiovascular Exam: Present: regular rate, normal rhythm, normal heart sounds. Absent: systolic murmur, diastolic murmur, rubs, gallop, clicks Neurological exam: Present: alert, oriented X3 Psychiatric exam: Present: normal affect, normal mood Skin exam: Present: warm, dry, intact, normal color. Absent: rash Course Vital Signs 12/23/24 12/23/24 11:17 14:30 Temperature 98.2 F Pulse Rate 78 80 Respiratory 17 18 Rate Blood Pressure 137/74 109/61 O2 Sat by Pulse 98 96 Oximetry Medical Decision Making - Medical Decision Making Was pt. sent in by a medical professional or institution (, ANDREA, SALES SYSTEMS ENGINEER, urgent care, hospital, or custodial...) When possible be specific @ -No Did you speak to anyone other than the patient for history (EMS, parent, family, police, friend...)? What history was obtained from this source @ -No Did you review nursing and triage notes (agree or disagree)? Why? @ -I reviewed and agree with nursing and triage notes Were old charts reviewed (outside hosp., previous admission, EMS record, old EKG, old radiological studies, urgent care reports/EKG's, custodial records)? Report findings @ -No old charts were reviewed Differential Diagnosis (chest pain, altered mental status, abdominal pain women, abdominal pain men, vaginal bleeding, weakness, fever, dyspnea, syncope, headache, dizziness, GI bleed, back pain, seizure, CVA, palpatations, mental health, musculoskeletal)? @ -Allergic reaction, cellulitis, anaphylaxis, hives, dental infection, sinusitis EKG interpreted by me (3pts min.). @ -None X-rays interpreted by me (1pt min.). @ -None done CT interpreted by me (1pt min.). @ -None done U/S interpreted by me (1pt. min.). @ -None done What testing was considered but not performed or refused? (CT, X-rays, U/S, labs)? Why? @ -None What meds were considered but not given or refused? Why? @ -None Did you discuss the management of the patient with other professionals (professionals i.e. ANDREA Stephen, SALES SYSTEMS ENGINEER, lab, RT, psych nurse, psychosocial rehabilitation counselor, loan teller, teacher, safety security officer, transplant case manager)? Give summary @ -No Was smoking cessation discussed for >3mins.? @ -No Was critical care preformed (if so, how long)? @ -No Were there social determinants of health that impacted care today? How? (Homelessness, low income, unemployed, alcoholism, drug addiction, transportation, low edu. Level, literacy, decrease access to med. care, shelter, rehab)? @ -No Was there de-escalation of care discussed even if they declined (Discuss DNR or withdrawal of care, Hospice)? DNR status @ -No What co-morbidities impacted this encounter? (DM, HTN, Smoking, COPD, CAD, Cancer, CVA, ARF, Chemo, Hep., AIDS, mental health diagnosis, sleep apnea, morbid obesity)? @ -None Was patient admitted / discharged? Hospital course, mention meds given and route, prescriptions, significant lab abnormalities, going to OR and other pertinent info. @ -Discharge. 64-year-old male presenting for facial swelling after starting a new medication 3 days ago. No lip or tongue swelling no difficulty breathing or swallowing. Patient is well-appearing, no acute distress. There is moderate edema bilateral but predominantly around the left eye with no proptosis. Provided with IM Solu-Medrol, Benadryl and oral Pepcid. Upon reevaluation, there is significant improvement of symptoms. Advised patient to follow-up with Dr. Ivy as soon as possible and to discontinue Revlimid until follow-up. Prescribed outpatient course of prednisone and Pepcid. Advised to continue Benadryl [id number]. Case was discussed with my ED attending Dr. Chauhan. Undiagnosed new problem with uncertain prognosis? @ -No Drug Therapy requiring intensive monitoring for toxicity (Heparin, Nitro, Insulin, Cardizem)? @ -No Were any procedures done? @ -No Diagnosis/symptom? @ -Allergic reaction Acute, or Chronic, or Acute on Chronic? @ -Acute Uncomplicated (without systemic symptoms) or Complicated (systemic symptoms)? @ -Uncomplicated Side effects of treatment? @ -No Exacerbation, Progression, or Severe Exacerbation? @ -No Poses a threat to life or bodily function? How? (Chest pain, [place], [place], pneumonia, PE, COPD, DKA, ARF, appy, cholecystitis, CVA, Diverticulitis, Homicidal, Suicidal, threat to staff... and all critical care pts) @ -Not at this time Disposition Clinical Impression: Allergic reaction Disposition: HOME SELF-CARE Condition: Stable Additional Instructions: Please return to the Emergency Department if symptoms worsen or any other concerns. Prescriptions: predniSONE [Deltasone] 40 mg PO DAILY #10 tab Famotidine [Pepcid] 40 mg PO DAILY 5 Days #5 tablet Is patient prescribed a controlled substance at d/c from ED?: No Referrals: Gerry Ivy [Primary Care Provider] - 1-2 days Time of Disposition: 14:40
[2024-12-23 14:32] VITALS: BP 109/61; PULSE 80; RESP 18
== END 2024-12-23 14:53 | disposition home or self-care (01) ==
LOC: EC 11:16
DX: R22.0 Localized swelling, mass and lump, head (principal); T45.1X5A Adverse effect of antineoplastic and immunosuppressive drugs, initial encounter; Z88.0 Allergy status to penicillin
CPT/HCPCS: 99283; 96372 ×2; J1200; J2919

== ENCOUNTER 2025-01-15 20:26 | Emergency (ER) | payer BC ==
--- NOTE | 2025-01-15 21:00 | ED ---
General Adult HPI - General Chief complaint: Allergic Reaction Stated complaint: Allergic reaction to medication Time Seen by Provider: 01/15/25 20:44 Source: patient, RN notes reviewed Mode of arrival: ambulatory Limitations: no limitations - History of Present Illness Initial comments: 64-year-old male presents to the emergency department for potential allergic reaction. Patient states that he was started on a medication by his oncologist about a month ago. He notes that at that time he took about 3 doses and started developing itching, swelling, redness to his scalp. He was stopped on this medication and over the past 2 days resumed at the instruction of his oncologist. He notes that he has similar symptoms again to what he experienced in the past. He denies any shortness of breath, tongue, lip swelling. - Related Data Home Medications Medication Instructions Recorded Confirmed Acyclovir [Zovirax] 400 mg PO BID 07/05/23 09/17/24 Ascorbic Acid [Vitamin C] 1,000 mg PO BID 07/05/23 09/17/24 Cyanocobalamin (Vitamin B-12) 500 mcg PO DAILY 07/05/23 09/17/24 [Vitamin B-12] Docusate [Colace] 50 mg PO Q4-6H PRN 07/05/23 09/17/24 Magnesium 400 mg PO DAILY 07/05/23 09/17/24 Omeprazole [PriLOSEC] 20 mg PO DAILY 07/05/23 09/17/24 Ondansetron [Zofran] 4 mg PO Q6HR PRN 07/05/23 09/17/24 Unk 40% Urea Cream 1 applic TOPICAL BID 09/05/23 09/17/24 Acetaminophen 500 mg PO BID 09/15/24 09/17/24 Calcium Carbonate [Calcium] 1,200 mg PO DAILY 09/15/24 09/17/24 Previous Rx's Medication Instructions Recorded Famotidine [Pepcid] 40 mg PO DAILY 5 Days #5 tablet 12/23/24 predniSONE [Deltasone] 40 mg PO DAILY #10 tab 12/23/24 predniSONE 50 mg PO DAILY #5 tab 01/15/25 Allergies Allergy/AdvReac Type Severity Reaction Status Date / Time Penicillins Allergy Rash/Hives Verified 01/15/25 20:39 Review of Systems ROS Statement: Those systems with pertinent positive or pertinent negative responses have been documented in the HPI. ROS Other: All systems not noted in ROS Statement are negative. Past Medical History Past Medical History: Cancer, GERD/Reflux, Osteoarthritis (OA) Additional Past Medical History / Comment(s): multiple myeloma-tx at [facility]-last chemo tx May 2024, dental disease-has 7 teeth remaining-in process of getting dentures, colorectal stg 3 cancer History of Any Multi-Drug Resistant Organisms: None Reported Past Surgical History: Appendectomy, Bowel Resection, Orthopedic Surgery Additional Past Surgical History / Comment(s): bilateral knee surgery torn meniscus, fractured humerus left- wears brace, colonoscopy,reverse lt total shoulder replacement 07-16-24 @ [facility],bowel resection due to colorectal CA 08-31-24 Past Anesthesia/Blood Transfusion Reactions: No Reported Reaction, Family History of Problems w/ Anesthesia, Motion Sickness Additional Past Anesthesia/Blood Transfusion Reaction / Comment(s): no blood transfusion. "brother allergic to all forms of anesthesia" Past Psychological History: No Psychological Hx Reported Smoking Status: Never smoker - Past Family History Mother Family Medical History: Cancer Additional Family Medical History / Comment(s): cervical/uterine. maternal aunt breast and cervical CA Father Family Medical History: Coronary Artery Disease (CAD) Additional Family Medical History / Comment(s): heart failure Brother(s) Family Medical History: Coronary Artery Disease (CAD) Additional Family Medical History / Comment(s): cardiac Sister(s) Family Medical History: Coronary Artery Disease (CAD) General Exam Limitations: no limitations General appearance: alert, in no apparent distress Head exam: Present: atraumatic, normocephalic, normal inspection Eye exam: Present: normal appearance, PERRL, EOMI. Absent: scleral icterus, conjunctival injection, periorbital swelling ENT exam: Present: normal exam, normal oropharynx, mucous membranes moist Neck exam: Present: normal inspection. Absent: tenderness, meningismus, lymphadenopathy Respiratory exam: Present: normal lung sounds bilaterally. Absent: respiratory distress, wheezes, rales, rhonchi, stridor Cardiovascular Exam: Present: regular rate, normal rhythm, normal heart sounds. Absent: systolic murmur, diastolic murmur, rubs, gallop, clicks Extremities exam: Present: normal inspection, full ROM, normal capillary refill. Absent: tenderness, pedal edema, joint swelling, calf tenderness Neurological exam: Present: alert, oriented X3 Psychiatric exam: Present: normal affect, normal mood Skin exam: Present: warm, dry, intact, normal color. Absent: rash Course Vital Signs 01/15/25 01/15/25 20:32 21:26 Temperature 98.6 F 98.4 F Pulse Rate 90 83 Respiratory 18 16 Rate Blood Pressure 111/64 136/68 O2 Sat by Pulse 90 L 98 Oximetry Medical Decision Making - Medical Decision Making Was pt. sent in by a medical professional or institution (ANDREA Stephen, ORGANIC GARDENING TEACHER, urgent care, hospital, or alf...) When possible be specific @ -No Did you speak to anyone other than the patient for history (EMS, parent, family, police, friend...)? What history was obtained from this source @ -No Did you review nursing and triage notes (agree or disagree)? Why? @ -I reviewed and agree with nursing and triage notes Were old charts reviewed (outside hosp., previous admission, EMS record, old EKG, old radiological studies, urgent care reports/EKG's, alf records)? Report findings @ -No old charts were reviewed Differential Diagnosis (chest pain, altered mental status, abdominal pain women, abdominal pain men, vaginal bleeding, weakness, fever, dyspnea, syncope, headache, dizziness, GI bleed, back pain, seizure, CVA, palpatations, mental health, musculoskeletal)? @ -Urticaria, medication reaction, anaphylaxis, this list is not all inclusive EKG interpreted by me (3pts min.). @ -None X-rays interpreted by me (1pt min.). @ -None done CT interpreted by me (1pt min.). @ -None done U/S interpreted by me (1pt. min.). @ -None done What testing was considered but not performed or refused? (CT, X-rays, U/S, labs)? Why? @ -None What meds were considered but not given or refused? Why? @ -None Did you discuss the management of the patient with other professionals (professionals i.e. ANDREA Stephen, ORGANIC GARDENING TEACHER, lab, RT, psych nurse, grease machine worker, bottling line operator, teacher, chief investment officer, rifle case repairer)? Give summary @ -No Was smoking cessation discussed for >3mins.? @ -No Was critical care preformed (if so, how long)? @ -No Were there social determinants of health that impacted care today? How? (Homelessness, low income, unemployed, alcoholism, drug addiction, transportation, low edu. Level, literacy, decrease access to med. care, nursing home, rehab)? @ -No Was there de-escalation of care discussed even if they declined (Discuss DNR or withdrawal of care, Hospice)? DNR status @ -No What co-morbidities impacted this encounter? (DM, HTN, Smoking, COPD, CAD, Cancer, CVA, ARF, Chemo, Hep., AIDS, mental health diagnosis, sleep apnea, morbid obesity)? @ -None Was patient admitted / discharged? Hospital course, mention meds given and route, prescriptions, significant lab abnormalities, going to OR and other pertinent info. @ - discharged. Patient presented to the emergency department for evaluation of potential allergic reaction to a recently resumed medication. Patient is not having any shortness of breath, no lip or tongue swelling. Patient was provided allergy cocktail in the emergency department. He is feeling better. He will be discharged home. He is understanding agreeable to plan. Patient stable at time of discharge. Case discussed with Dr. Cruz Undiagnosed new problem with uncertain prognosis? @ -No Drug Therapy requiring intensive monitoring for toxicity (Heparin, Nitro, Insulin, Cardizem)? @ -No Were any procedures done? @ -No Diagnosis/symptom? @ -allergic reaction Acute, or Chronic, or Acute on Chronic? @ -acute Uncomplicated (without systemic symptoms) or Complicated (systemic symptoms)? @ -uncomplicated Side effects of treatment? @ -No Exacerbation, Progression, or Severe Exacerbation? @ -No Poses a threat to life or bodily function? How? (Chest pain, [place], [place], pneumonia, PE, COPD, DKA, ARF, appy, cholecystitis, CVA, Diverticulitis, Homicidal, Suicidal, threat to staff... and all critical care pts) @ -No Disposition Clinical Impression: Allergic reaction Disposition: HOME SELF-CARE Condition: Stable Instructions (If sedation given, give patient instructions): General Allergic Reaction (ED) Additional Instructions: Please follow-up with your oncologist. Return to the emergency department for new or worsening symptoms. Prescriptions: predniSONE 50 mg PO DAILY #5 tab Is patient prescribed a controlled substance at d/c from ED?: No Referrals: Gerry Ivy [Primary Care Provider] - 1-2 days
[2025-01-15] MEDS: diphenhydrAMINE 50 MG/ML 1 ML VIAL IM STA (21:09)
[2025-01-15] MEDS: methylPREDNISolone SOD SUCCI 125 MG/2 ML VIAL IM ONE (21:10)
[2025-01-15] MEDS: FAMOTIDINE 20 MG TAB PO STA (21:10)
[2025-01-15 21:27] VITALS: BP 136/68; PULSE 83; RESP 16; TEMP 98.4
== END 2025-01-15 22:20 | disposition home or self-care (01) ==
LOC: EC 20:26
DX: T78.40XA Allergy, unspecified, initial encounter (principal); Z88.0 Allergy status to penicillin
CPT/HCPCS: 99283; 96372; J1200; J2919

== ENCOUNTER → 2025-01-20 | Outpatient (CLI) | payer BC ==
[2025-01-20 08:54] LABS: African American GFR (CKD) >90 (>60 ml/min/1.73 sqM); Blood Urea Nitrogen 16 mg/dL (9-20); Non-African American GFR(CKD) >90 (>60 ml/min/1.73 sqM)
--- NOTE | 2025-01-20 10:06 | CT ---
EXAMINATION TYPE: CT ChestAbdPelvis w con DATE OF EXAM: 01/20/2025 9:34 AM COMPARISON: 09/24/2024, 06/17/2024.. CLINICAL INDICATION: Male, 65 years old with history of R22.1 LOCALIZED SWELLING, MASS AND LUMP, NECK ; [facility], COLON CANCER FOLLOW UP Technique: CT ChestAbdPelvis w con; Multiple axial images were obtained. Two-dimensional coronal and sagittal reconstructions were obtained. Contrast used:100 mL of Isovue 300 with IV Contrast, (None if empty) Oral contrast used: with Oral Contrast CT DLP: 1277 mGycm, Automated exposure control for dose reduction was used. Findings: CHEST: LUNGS/ PLEURA: No pleural effusion, pneumothorax, or focal consolidation. No suspicious pulmonary nod ule or mass. AIRWAY: Patent and unremarkable.. HEART: Size within normal limits. No pericardial effusion. Moderate coronary arterial calcifications. MEDIASTINUM: No evidence of adenopathy. VASCULATURE: Conventional three-vessel aortic arch. Aneurysm dilatation of the ascending thoracic aor ta measuring up to 4.0 cm. No extension into the aortic arch. Aortic root measures up to 3.7 cm. Desc ending thoracic aorta measures up to 3.0 cm. Right anterior chest wall IJ Mediport catheter distal ti p terminating at the low SVC. MUSCULOSKELETAL: No acute osseous abnormalities. Similar remote anterior right fifth rib fracture. Si milar low posterior left seventh rib fracture. No aggressive osseous lesion. Small right posterior de ltoid intramuscular lipoma. There is post fixation changes to the left proximal humerus with anterior dislocation of the shoulder prosthesis. SOFT TISSUES/LYMPH NODES: Unremarkable. LOWER NECK: No significant findings. ABDOMEN: ABDOMEN LIVER: Unremarkable GALLBLADDER AND BILE DUCTS: Unremarkable. PANCREAS: Unremarkable. SPLEEN: measuring 13.0 cm in AP dimension. Low density areas on arterial phase imaging was become iso dense on delayed imaging that represent normal filling of the spleen ADRENAL GLANDS: Unremarkable. KIDNEYS AND URETERS: No evidence of hydronephrosis or renal calculus. The kidneys enhance symmetrical ly. Contrast is demonstrated within both collecting systems on delayed phase. Subcentimeter hypodense focus within the left kidney which is too small to characterize but likely represents a cyst. PELVIS BLADDER: Unremarkable REPRODUCTIVE: Prostate is enlarged in size measuring 5.0 cm in transverse dimension. Central dystroph ic prostate calcifications. ABDOMEN & PELVIS STOMACH AND BOWEL: Stomach and duodenum are unremarkable. Enteric contrast reaches the rectum. Postsu rgical changes of the sigmoid descending colon with anastomosis identified. No wall thickening is abn ormal soft tissue identified at the anastomotic site. No evidence of bowel obstruction. PERITONEUM: No evidence of pneumoperitoneum or free fluid. VASCULATURE: Mild atherosclerotic calcifications are present throughout the abdominal aorta and its b ranches. No abdominal aortic aneurysm. MUSCULOSKELETAL: No acute osseous abnormalities. No aggressive osseous lesion. LYMPH NODES: No evidence for lymphadenopathy. SOFT TISSUE/ABDOMINAL WALL: Postsurgical changes in the anterior wall at midline. IMPRESSION: 1. New Left shoulder arthroplasty with anterior dislocation of the humerus. 2. Postsurgical changes of the colon with anastomosis identified. No suspicious soft tissue at the a nastomotic site to suggest recurrence. No lymphadenopathy within the chest, abdomen or pelvis. No shira picious pulmonary nodules. 3. Stable ascending thoracic aortic aneurysm measuring up to 4.0 cm. A Yellow level critical message alert has been initiated for [facility] via the [employer] sonal Results System on 01/20/2025 10:04 AM. This message alert has been sent to [facility] via the [employer] provided by the clinician for the receipt of Radiology Critical Findings. Message ID [id number]. [facility], , 01/20/2025 10:04 AM
== END | disposition home or self-care (01) ==
LOC: RADCTMAIN 12-23 10:57
PROVIDERS: ATTEND Internal Medicine Hematology & Oncology
DX: C90.00 Multiple myeloma not having achieved remission (principal); I71.21 Aneurysm of the ascending aorta, without rupture; R22.1 Localized swelling, mass and lump, neck; C79.51 Secondary malignant neoplasm of bone; C18.6 Malignant neoplasm of descending colon; Z71.3 Dietary counseling and surveillance; Z96.612 Presence of left artificial shoulder joint
CPT/HCPCS: 36415; 71260; 74177; 82565; 84520